=== PATIENT | female | born 1990 | race African-American/Black ===

== ENCOUNTER 2020-04-01 15:05 | Emergency (ER) | payer OTHER, SELFPAY ==
[2020-04-01 15:36] VITALS: BP 137/84; PULSE 97; RESP 16; TEMP 36.5; O2SAT 100
[2020-04-01 19:36] VITALS: BP 133/114; PULSE 120; O2SAT 100
[2020-04-01] MEDS: ACETAMINOPHEN 325 MG TABLET 650 MG (21:25)
[2020-04-01] MEDS: IBUPROFEN 600 MG TABLET (21:25)
--- NOTE | 2020-04-01 21:25 | PC.NURSE ---
LUCIO FROM DR SYKES FOR MOTRIN 600 MG PO X1 AND TYLENOL 650 MG PO X1
[2020-04-01 21:55] LABS: Monoscreen Negative (Negative); Negative Monotest Control Negative (Negative); Positive Monotest Control Positive (Positive)
--- NOTE | 2020-04-01 22:05 | ED.GENADULT ---
HPI - General Adult General Chief complaint: Upper Respiratory Infection Stated complaint: st Time Seen by Provider: 04/01/20 20:12 Source: patient Mode of arrival: ambulatory Limitations: no limitations History of Present Illness HPI narrative: 29 years old -[place] female presents with sore throat that started 2 days ago. Patient lives alone, denies exposure to anybody with the same symptoms. Patient denies exposure to anybody was COVID-19. Patient denies any fever, chills, nausea, vomiting, chest pain, shortness of breath, headaches. Related Data Allergies Allergy/AdvReac Type Severity Reaction Status Date / Time No Known Allergies Allergy Verified 04/01/20 15:38 Review of Systems Review of Systems: Narrative: CONSTITUTIONAL: Denies fever, chills, or sweats. EYES: Denies visual changes, redness, or discharge. ENT: Denies rhinorrhea, congestion, sore throat, or otalgia. CARDIOVASCULAR: Denies chest pain, palpitations, or edema. RESPIRATORY: Denies cough or dyspnea. GASTROINTESTINAL: Denies abdominal pain, nausea, vomiting, or diarrhea. GENITOURINARY: Denies dysuria or hematuria. SKIN: Denies rash or itching. MUSCULOSKELETAL: Denies back pain, joint pain, or myalgia. NEUROLOGIC: Denies headache, numbness, or weakness. PSYCHIATRIC: Denies anxiety or depression. [facility] Social History Social History (Updated 04/01/20 @ 22:07 by Adam Farah MD) Gender identity (if verbalized by the patient): Female Spiritual care concerns: No Exam Narrative: Exam Narrative: General appearance: Well-developed, well-nourished Skin: Normal color Head: Normocephalic, nontraumatic Eyes: Clear conjunctiva ENT: Large tonsils bilaterally with yellow discharge, midline uvula Neck: Supple, nontender Chest and respiratory: Airway patent, no respiratory distress, no accessory muscle use Heart: Regular rate/rhythm Abdomen: Soft, nontender, no organomegaly, quiet bowel sounds Vascular: Normal peripheral pulses, normal capillary refill. Musculoskeletal: Normal range of motion, nontender back Neurologic: Alert and oriented ?3, [employer] is normal as tested, no gross motor deficit Course Course Emergency Course: Stable. Rapid strep test and mono test are negative. The plan to discharge patient on Z-Juan Antonio for possible strep throat. COVID-19 test also ordered. Vital Signs Vital signs: Vital Signs Temperature 36.5 C 04/01/20 15:36 Pulse Rate 97 04/01/20 15:36 Respiratory Rate 16 04/01/20 15:36 Blood Pressure 137/84 04/01/20 15:36 Pulse Oximetry 100 04/01/20 15:36 Temperature 36.5 C 04/01/20 15:36 Pulse Rate 120 H 04/01/20 19:36 Respiratory Rate 16 04/01/20 15:36 Blood Pressure 133/114 H 04/01/20 19:36 Pulse Oximetry 100 04/01/20 19:36 Medical Decision Making MDM Narrative Medical decision making narrative: Patient denies any coughing, sneezing or postnasal discharge. Strep throat, mono are my concern. Vital Signs Vital Signs: Vital Signs Temperature 36.5 C 04/01/20 15:36 Pulse Rate 97 04/01/20 15:36 Respiratory Rate 16 04/01/20 15:36 Blood Pressure 137/84 04/01/20 15:36 Pulse Oximetry 100 04/01/20 15:36 Temperature 36.5 C 04/01/20 15:36 Pulse Rate 120 H 04/01/20 19:36 Respiratory Rate 16 04/01/20 15:36 Blood Pressure 133/114 H 04/01/20 19:36 Pulse Oximetry 100 04/01/20 19:36 Lab Data Labs: Lab Results 04/01/20 04/01/20 Range/Units 21:06 21:06 Monoscreen Negative (Negative) SARS-CoV-2 RNA (RT-PCR) Pending Strep Screen Presumptive Negative *(Reference Range: Negative)* Critical Care Time Critical Care Time Critical Care Time:
[2020-04-02 13:12] LABS: SARS-CoV-2 RNA PCR Negative
== END 2020-04-01 22:36 | disposition home or self-care (01) ==
PROVIDERS: Emergency Provider Emergency Medicine
DX: J03.90 Acute tonsillitis, unspecified (principal); Z20.828 Contact with and (suspected) exposure to other viral communicable diseases
CPT/HCPCS: 36415; 86308; 87081; 87635; 87880; 99283; A9270; C9803; U0003

== ENCOUNTER 2023-12-28 12:59 | Emergency (ER) | payer SELFPAY ==
[2023-12-28 13:09] VITALS: BP 143/82; PULSE 90; RESP 18; TEMP 36.3; O2SAT 100
[2023-12-28 13:24] LABS: Appearance Urine Cloudy (Clear); Bacteria Urine 3+ /hpf; Bilirubin Urine Negative (Negative); Blood Urine Negative (Negative); Color Urine Yellow (Yellow); Glucose Urine UA Negative (Negative); Ketones Urine Negative (Negative); Leukocyte Esterase Ur 3+ LEU/UL (Negative); Nitrate Urine Negative (Negative); Non Pathogenic Casts 0-2; Protein Urine Negative (Negative); RBC Urine 0-2 /hpf (0-2); Specific Grav Ur 1.018 (1.001-1.035); Squamous Epithelial Cell Urine None Seen /hpf (Few); Urobilinogen Urine 0.2 mg/dL (<2.0); WBC Urine >100 /hpf (0-3); pH Urine 7.5 (5.0-9.0)
[2023-12-28 13:26] LABS: Add Urine Microscopic? YES
--- NOTE | 2023-12-28 13:45 | ED.FEMALEGU ---
HPI - Female Genitourinary General Chief complaint: Urogenital-Female Stated complaint: UTI symptoms Time Seen by Provider: 12/28/23 13:13 History of Present Illness HPI Narrative: 33-year-old female present to the emergency department for evaluation for urinary symptoms. Patient states symptoms started yesterday. Patient does have burning with urination. Patient does suspect this is a urinary tract infection. Patient denies any prior history of kidney stones, patient denies any concern for STIs. Patient denies any vaginal bleeding or vaginal discharge Related Data Allergies Allergy/AdvReac Type Severity Reaction Status Date / Time No Known Allergies Allergy Verified 04/01/20 15:38 Review of Systems Review of Systems: All systems reviewed & are unremarkable except as noted in HPI and below PMFSH Social History Social History (Updated 04/01/20 @ 22:07 by Adam Farah MD) Gender identity (if verbalized by the patient): Female Spiritual care concerns: No Exam Narrative: APPEARANCE: Well appearing, no pain, no distress, well-nourished. HEAD: normocephalic, atraumatic. EYES: PERRLA/EOMI, conjunctivae clear. NOSE: Normal no drainage EARS:TMS clear with good light reflex. THROAT: Pharynx clear, no exudate. NECK: Supple. No adenopathy, no masses. RESPIRATORY: Airway patent, respirations nonlabored. Clear to auscultation bilaterally, no rales, rhonchi, wheezing. CARDIOVASCULAR: Regular rate and rhythm without murmurs rubs or gallops. ABDOMINAL: Suprapubic tenderness to palpation MUSCULOSKELETAL: Moves all extremities. Strength/ROM intact, No edema, No calf tenderness. NEURO: Alert. Cranial nerves II through XII intact. Grossly intact SKIN: Warm, dry. Normal Color Course Course Emergency Course: Patient was treated for urinary tract infection and discharged home Vital Signs Vital signs: Vital Signs Temperature 97.3 F L 12/28/23 13:09 Pulse Rate 90 12/28/23 13:09 Respiratory Rate 18 12/28/23 13:09 Blood Pressure 143/82 H 12/28/23 13:09 Pulse Oximetry 100 12/28/23 13:09 Oxygen Delivery Room Air 12/28/23 13:09 Temperature 98.8 F 12/28/23 14:08 Pulse Rate 86 12/28/23 14:08 Respiratory Rate 14 12/28/23 14:08 Blood Pressure 130/76 12/28/23 14:08 Pulse Oximetry 100 12/28/23 14:08 Oxygen Delivery Room Air 12/28/23 13:09 MDM - Female Genitourinary MDM Narrative Medical decision making narrative: 33-year-old female present to the emergency department for evaluation for urinary symptoms. Urine is consistent with a urinary tract infection. Patient was treated with Keflex in the emergency department. Patient was also provided Pyridium. Patient was discharged home with Keflex and Pyridium. Patient was encouraged to drink plenty fluids and to have close follow-up with her primary care physician. Differential Diagnosis Differential diagnosis: Likely urinary tract infection, bacterial vaginosis, trichomoniasis, ovarian cyst, cystitis and dysmenorrhea Lab Data Attestation: I reviewed the patient's lab results. Labs: Lab Results 12/28/23 Range/Units 13:15 Urine Color Yellow (Yellow) Urine Appearance Cloudy H (Clear) Urine pH 7.5 (5.0-9.0) Ur Specific [place] 1.018 (1.001-1.035) Urine Protein Negative (Negative) mg/dL Urine Glucose (UA) Negative (Negative) mg/dL Urine Ketones Negative (Negative) mg/dL Ur Blood (Man) Negative (Negative) Urine Nitrate Negative (Negative) Urine Bilirubin Negative (Negative) Urine Urobilinogen 0.2 (<2.0) mg/dL Leukocyte Esterase Rfl 3+ H (Negative) KIM/UL Urine RBC 0-2 (0-2) /hpf Urine WBC >100 H (0-3) /hpf Ur Squamous Epith Cells None seen (Few) /hpf Urine Bacteria 3+ H /hpf Urine Casts 0-2 UCG Bedside Result Negative Reference Range: Negative Urine Characteristics Cloudy
[2023-12-28] MEDS: CEPHALEXIN 500 MG CAPSULE PO (14:05)
[2023-12-28 14:08] VITALS: BP 130/76; PULSE 86; RESP 14; TEMP 37.1; O2SAT 100
== END 2023-12-28 14:10 | disposition home or self-care (01) ==
PROVIDERS: Emergency Provider Emergency Medicine
DX: N39.0 Urinary tract infection, site not specified (principal)
CPT/HCPCS: 81001; 81025; 87077; 87086; 87088; 87186; 99283; A9270

== ENCOUNTER 2024-05-05 09:07 | Emergency (ER) | payer SELFPAY ==
[2024-05-05 09:17] VITALS: BP 146/94; PULSE 77; RESP 14; TEMP 36.7; O2SAT 100
[2024-05-05 09:22] LABS: BEDSIDEPREGUCG Negative (Negative)
[2024-05-05 09:35] LABS: Add Urine Microscopic? YES; Appearance Urine Clear (Clear); Bacteria Urine None Seen /hpf; Bilirubin Urine Negative (Negative); Blood Urine Negative (Negative); Color Urine Yellow (Yellow); Glucose Urine UA Negative (Negative); Ketones Urine Negative (Negative); Leukocyte Esterase Ur 3+ LEU/UL (Negative); Nitrate Urine Negative (Negative); Non Pathogenic Casts 0-2; Protein Urine Negative (Negative); RBC Urine 0-2 /hpf (0-2); Specific Grav Ur 1.016 (1.001-1.035); Squamous Epithelial Cell Urine Occasional /hpf (Few); WBC Urine 51-100 /hpf (0-3); pH Urine 6.5 (5.0-9.0)
--- NOTE | 2024-05-05 10:54 | ED.FEMALEGU ---
HPI - Female Genitourinary General Chief complaint: Urogenital-Female Stated complaint: possible UTI Time Seen by Provider: 05/05/24 09:28 Source: patient Mode of arrival: ambulatory Limitations: no limitations History of Present Illness HPI Narrative: This is a 34-year-old female that presents to the emergency department for dysuria. Reports she was having some bleeding after intercourse. She was evaluated at another ER and had STD testing which was all negative. Over the last couple of days she has started to develop some dysuria, also reports foul-smelling urine. Denies fevers or vomiting. Related Data Allergies Allergy/AdvReac Type Severity Reaction Status Date / Time No Known Allergies Allergy Verified 05/05/24 09:21 Review of Systems Review of Systems: CONSTITUTIONAL: Denies fever, GASTROINTESTINAL: Denies abdominal pain, nausea, vomiting GENITOURINARY: Reports dysuria. Denies hematuria. All systems reviewed & are unremarkable except as noted in HPI and below PMFSH Past Medical History Medical History (Updated 05/05/24 @ 10:58 by Katelyn Thurman PA-C) No active medical problems Social History Social History (Updated 05/05/24 @ 10:56 by Katelyn Thurman PA-C) Smoking status: Never smoker Gender identity (if verbalized by the patient): Female Spiritual care concerns: No Exam Narrative: GENERAL: Well-appearing, well-nourished, and in no acute distress. HEAD: Normocephalic, atraumatic. EYES: EOMI. CHEST: Clear to auscultation. No respiratory distress. No wheezes rales or rhonchi HEART: Regular rate and rhythm. No murmur heard. Normal peripheral pulses. ABDOMEN: Soft, nontender, nondistended, normal active bowel sounds. No CVA tenderness EXTREMITIES: Normal range of motion. No edema. SKIN: Warm, dry, no rash. NEURO: No focal deficits. Alert and oriented x3. PSYCH: Normal mood and affect Course Course Emergency Course: patient updated on her workup and agrees with plan of care Vital Signs Vital signs: Vital Signs Temperature 98.1 F 05/05/24 09:17 Pulse Rate 77 05/05/24 09:17 Respiratory Rate 14 05/05/24 09:17 Blood Pressure 146/94 H 05/05/24 09:17 Pulse Oximetry 100 05/05/24 09:17 Oxygen Delivery Room Air 05/05/24 09:17 Temperature 98.1 F 05/05/24 09:17 Pulse Rate 77 05/05/24 09:17 Respiratory Rate 14 05/05/24 09:17 Blood Pressure 146/94 H 05/05/24 09:17 Pulse Oximetry 100 05/05/24 09:17 Oxygen Delivery Room Air 05/05/24 09:17 MDM - Female Genitourinary MDM Narrative Medical decision making narrative: patient presents the emergency department for symptoms of UTI. She is afebrile and nontoxic appearing. No CVA tenderness. Urine is consistent with infection. test is negative. Reports recent negative STD testing. Will be started on oral antibiotics. She is to follow up with primary provider. She was given warnings to return to the ER Differential Diagnosis Differential diagnosis: Likely urinary tract infection, cystitis and other ( pyelonephritis) Lab Data Attestation: I reviewed the patient's lab results. Labs: Lab Results 05/05/24 05/05/24 Range/Units 09:20 09:25 Urine Color Yellow (Yellow) Urine Appearance Clear (Clear) Urine pH 6.5 (5.0-9.0) Ur Specific [place] 1.016 (1.001-1.035) Urine Protein Negative (Negative) mg/dL Urine Glucose (UA) Negative (Negative) mg/dL Urine Ketones Negative (Negative) mg/dL Ur Blood (Man) Negative (Negative) Urine Nitrate Negative (Negative) Urine Bilirubin Negative (Negative) Urine Urobilinogen 1.0 (<2.0) mg/dL Leukocyte Esterase Rfl 3+ H (Negative) KIM/UL Urine RBC 0-2 (0-2) /hpf Urine WBC 51-100 H (0-3) /hpf Ur Squamous Epith Cells Occasional (Few) /hpf Urine Bacteria None seen /hpf Urine Casts 0-2 POC Urine HCG, Qual Negative (Negative) Critical Care Time Critical Care Time Critical Care Time: No Discharge Plan Discharge Clinical Impression: Acute UTI Patient Disposition: Home, Self-Care Condition: Stable Instructions: Antibiotic Form, Urinary Tract Infection in Women (ED) Additional Instructions: Return to the ER if you experience fever, abdominal pain with nausea and vomiting, you are unable to keep down liquids or solids, blood in the urine or any other symptoms that are concerning to you Remain well hydrated. take oral antibiotics as prescribed Follow up with primary care doctor Prescriptions: New cefdinir 300 mg capsule 300 mg PO Q12H 7 Days Qty: 14 0RF No Action azithromycin [Zithromax Z-Juan Antonio] 250 mg tablet 250 mg PO DAILY 5 Days Qty: 5 0RF azithromycin [Zithromax Z-Juan Antonio] 250 mg tablet 250 mg PO DAILY 5 Days Qty: 5 0RF cephalexin 500 mg capsule 500 mg PO Q8H 7 Days Qty: 21 0RF phenazopyridine [Pyridium] 100 mg tablet 100 mg PO TID PRN (Reason: pain) Qty: 6 0RF Follow-up/Referrals: UNKNOWN,DOCTOR [Primary Care Provider] -
[2024-05-05] MEDS: CEFDINIR 300 MG CAPSULE PO (11:10)
[2024-05-05 11:11] VITALS: BP 136/50; PULSE 81; RESP 16; TEMP 36.8; O2SAT 98
== END 2024-05-05 11:16 | disposition home or self-care (01) ==
PROVIDERS: Student in an Organized Health Care Education/Training Program; Emergency Provider Physician Assistant
DX: N39.0 Urinary tract infection, site not specified (principal)
CPT/HCPCS: 81001; 81025; 87086; 99283; A9270

== ENCOUNTER 2024-05-19 08:49 | Observation (INO) | payer SELFPAY ==
[2024-05-19] VITALS (12 sets, daily range): BP systolic 120–147; BP diastolic 71–97; PULSE 62–80; RESP 16–20; TEMP 36.3–36.6; O2SAT 99–100; BMI 33.0
--- NOTE | ~2024-05-19 | CT_ITS ---
CLINICAL INDICATION: Left upper quadrant pain and bilateral flank pain COMPARISON: None. TECHNIQUE: Multiple contiguous axial images of the abdomen and pelvis were performed following the ad ministration of with 100 mL Omnipaque-350 intravenous contrast The dose-length product (DLP) was 796.47 mGy-cm. Automated exposure control and iterative reconstruction technique were employed. FINDINGS/OBSERVATIONS: Visualized lower thorax: The bilateral lung bases are clear. The heart is of normal size, without pericardial effusion. Small hiatal hernia is present. Liver: The liver is enlarged measuring 20 cm in longitudinal dimension. The liver enhances homogeneously Gallbladder and biliary system: The gallbladder is decompressed, and otherwise unremarkable. Pancreas: The pancreas enhances homogeneously without ductal dilatation. Spleen: The spleen enhances homogeneously and is not enlarged measuring 10 cm in longitudinal dimension. Kidneys: The bilateral kidneys enhance symmetrically without hydronephrosis or renal calculi. Adrenal glands: Unremarkable. Gastrointestinal tract: Trace fecal stasis Appendix: The air-filled appendix is of normal caliber (axial series, images 126 -140). Vasculature: Unremarkable. No aneurysmal dilatation or significant stenosis. Lymph nodes: No pathologically enlarged or morphologically suspicious lymph nodes within the retroperitoneum or at the root of the mesentery. Pelvic structures: The bladder is decompressed and otherwise unremarkable. The uterus is anteverted and anteflexed. Body wall and musculoskeletal: No significant degenerative disease within the lower thoracic or lumbosacral spine. IMPRESSION: No obstructive uropathy. Hepatomegaly. Reviewed, dictated and finalized at location A. [employer]ACTIVE ART DIRECTOR
--- NOTE | ~2024-05-19 | XR_ITS ---
EXAMINATION: XR abdomen/kub 1V DATE: 05/19/2024 09:56 INDICATION: Hematuria. Recurrent urinary tract infections. TECHNIQUE: A supine view of the abdomen on 2 radiographs was obtained. COMPARISON: None. FINDINGS: There are no dilated loops of bowel. There are small calcifications in the pelvis. The kidn eys are obscured by bowel. IMPRESSION: 1. Small calcifications in the pelvis, which may be phleboliths. Distal ureteral stone is not exclude d on either side. Reviewed, dictated and finalized at location A. 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 Small calcifications in the pelvis, which may be phleboliths. Distal uretera l stone is not excluded on either side.
[2024-05-19 09:13] LABS: Basophils Percent Auto 0.4 % (0.2-1.2); Eosinophils Absolute Auto 0.2 K/mm3 (0-0.3); Eosinophils Percent Auto 2.4 % (0-4.4); Hematocrit 22.3 % (37.0-47.0); Immature Granulocyte Absolute 0.01 K/mm3 (0.00-0.031); Immature Granulocyte Percent A 0.1 % (0-0.5); Lymphocytes Absolute Auto 1.98 K/mm3 (0.9-3.2); Mean Corpuscular HGB Conc 27.8 g/dl (32-36); Mean Corpuscular Hemoglobin 17.8 pg (26-34); Mean Corpuscular Volume 64.1 fl (80-100); Mean Platelet Volume 9.4 fl (7.4-10.4); Monocytes Absolute Auto 0.5 K/mm3 (0.1-0.6); Monocytes Percent Auto 6.9 % (2.6-8.5); Neutrophils Absolute Auto 4.4 K/mm3 (1.3-6.7); Neutrophils Percent Auto 62.2 % (45.5-73.1); Platelet Count Result 728 k/mm3 (150-375); Red Blood Count 3.48 M/mm3 (4.2-5.4); Red Cell Distribution Width 20.9 % (11.5-14.5); White Blood Count 7.1 K/mm3 (4.5-10.0)
[2024-05-19 09:19] LABS: Add Urine Microscopic? YES; Appearance Urine Clear (Clear); Bacteria Urine None Seen /hpf; Bilirubin Urine Negative (Negative); Blood Urine Trace (Negative); Color Urine Yellow (Yellow); Glucose Urine UA Negative (Negative); Ketones Urine Negative (Negative); Leukocyte Esterase Ur 2+ LEU/UL (Negative); Nitrate Urine Negative (Negative); Non Pathogenic Casts 0-2; Protein Urine Negative (Negative); RBC Urine 0-2 /hpf (0-2); Specific Grav Ur 1.009 (1.001-1.035); Squamous Epithelial Cell Urine None Seen /hpf (Few); WBC Urine 51-100 /hpf (0-3); pH Urine 6.5 (5.0-9.0)
[2024-05-19 09:26] LABS: Alanine Aminotransferase 11 U/L (6-35); Albumin Level 4.3 g/dL (3.5-5.1); Alkaline Phosphatase 75 U/L (38-126); Anion Gap 8 mmol/L (4-12); Aspartate Amino Transferase 27 U/L (14-36); Bilirubin,Total 0.2 mg/dL (0.2-1.3); Blood Urea Nitrogen 14 mg/dL (7-17); Calcium 9.2 mg/dL (8.4-10.2); Carbon Dioxide 27 mmol/L (22-30); Chloride 100 mmol/L (98-107); Estimated CRCL calculation 130 ml/min; Estimated Glomerular Filt Rate > 60; Glucose 104 mg/dL (65-110); Lipase 79 U/L (23-300); Sodium 135 mmol/L (137-145)
--- NOTE | 2024-05-19 09:38 | ED_ITS ---
HPI - Abdominal Pain General Chief Complaint: Nausea/Vomiting/Diarrhea <Katelyn Thurman PA-C - Last Filed: 05/19/24 13:15> Stated Complaint: uti, dehydrated, n/v/d <Katelyn Thurman PA-C - Last Filed: 05/19/24 13:15> Time Seen by Provider: 05/19/24 09:07 <SVAAGE Griggs Last Filed: 05/19/24 13:15> Source: patient <SAVAGE Griggs Last Filed: 05/19/24 13:15> Mode of arrival: ambulatory <SAVAGE Griggs Last Filed: 05/19/24 13:15> Limitations: no limitations <Katelyn Thurman PA-C - Last Filed: 05/19/24 13:15> History of Present Illness HPI narrative: This is a 34-year-old female that presents to the emergency department for continued urinary symptoms. She was evaluated in the ER and diagnosed with a UTI. Reports she finished her antibiotics. She has had no relief. She continues to have dysuria. Now is endorsing hematuria as well as flank pain. Denies fevers. <Katelyn Thurman PA-C - Last Filed: 05/19/24 13:15> Related Data Home Medications: Home Medications Medication Instructions Recorded Confirmed No Home Medications 05/19/24 05/19/24 <Katelyn Thurman PA-C - Last Filed: 05/19/24 13:15> Allergies/Adverse Reactions: Allergies Allergy/AdvReac Type Severity Reaction Status Date / Time No Known Allergies Allergy Verified 05/19/24 09:01 <Katelyn Thurman PA-C - Last Filed: 05/19/24 13:15> Review of Systems Review of Systems: CONSTITUTIONAL: Denies fever GASTROINTESTINAL: Reports abdominal pain, nausea, vomiting, and diarrhea. GENITOURINARY: Reports dysuria and hematuria. <SAVAGE Griggs Last Filed: 05/19/24 13:15> All systems reviewed & are unremarkable except as noted in HPI and below <SAVAGE Griggs Last Filed: 05/19/24 13:15> [facility], [facility] Past Medical History Medical History: Medical History No active medical problems <Katelyn Thurman PA-C - Last Filed: 05/19/24 13:15> Social History Social History: Social History Smoking status: Never smoker Alcohol intake: unknown Substance use: never Do You Feel Safe in your Home?: Yes Lack of Transportation: No Lack of Food: Never True Current Housing: I Have Housing Concerned About Future Housing: No Difficulty Paying Gas/Electric Bills: No Difficulty Paying for Meds: No Currently Unemployed: No Education: High School Diploma/GED Difficulty w/ Childcare or Family Care: No Gender identity (if verbalized by the patient): Female Spiritual care concerns: No <Katelyn Thurman PA-C - Last Filed: 05/19/24 13:15> Exam Narrative: GENERAL: Well-appearing, well-nourished, and in no acute distress. HEAD: Normocephalic, atraumatic. EYES: EOMI. CHEST: Clear to auscultation. No respiratory distress. No wheezes rales or rhonchi HEART: Regular rate and rhythm. No murmur heard. Normal peripheral pulses. ABDOMEN: Soft, nontender, nondistended, normal active bowel sounds. No CVA tenderness EXTREMITIES: Normal range of motion. No edema. SKIN: Warm, dry, no rash. NEURO: No focal deficits. Alert and oriented x3. PSYCH: Normal mood and affect <Katelyn Thurman PA-C - Last Filed: 05/19/24 13:15> Course Course Emergency Course: patient updated on her workup and recommendation for admission <Katelyn Thurman PA-C - Last Filed: 05/19/24 13:15> [employer]/PA Physician Supervision agree with HPI <Mk Varma MD - Last Filed: 05/19/24 18:34> Consultations Consultation #1: Spoke with hospitalist about patient and workup who accepts admission <Katelyn Thurman PA-C - Last Filed: 05/19/24 13:15> Date: 05/19/24 <Katelyn Thurman PA-C - Last Filed: 05/19/24 13:15> Vital Signs Vital signs: Vital Signs Temperature 97.6 F 05/19/24 08:54 Respiratory Rate 18 05/19/24 08:54 Temperature 98 F 05/19/24 15:43 Pulse Rate 62 05/19/24 15:43 Respiratory Rate 16 05/19/24 15:43 Blood Pressure 147/94 H 05/19/24 15:43 Pulse Oximetry 100 05/19/24 15:43 Oxygen Delivery Room Air 05/19/24 16:35 <Katelyn Thurman PA-C - Last Filed: 05/19/24 13:15> Vital Signs Temperature 97.6 F 05/19/24 08:54 Respiratory Rate 18 05/19/24 08:54 Temperature 98 F 05/19/24 15:43 Pulse Rate 62 05/19/24 15:43 Respiratory Rate 16 05/19/24 15:43 Blood Pressure 147/94 H 05/19/24 15:43 Pulse Oximetry 100 05/19/24 15:43 Oxygen Delivery Room Air 05/19/24 16:35 <Mk Varma MD - Last Filed: 05/19/24 18:34> MDM - Abdominal Pain MDM Narrative Medical decision making narrative: patient presents to the emergency department for ongoing urinary symptoms. Was seen in the ER for a UTI. Finished her course of cefdinir with little relief. She is afebrile and nontoxic appearing. Her vitals are stable. Cbc without leukocytosis. Does show microcytic anemia with hemoglobin of 6.2. Patient does report known history of anemia. She is not currently taking her iron. She did just finished her menstrual cycle a couple of days prior. Does report she has heavy periods. Metabolic panel with normal appearing kidney function. UA with 2+ leuk esterase and 51-100 white blood cells. test negative. KUB shows small calcifications which are likely phleboliths. Ureteral stone not excluded. Unfortunately our CT scanner is not working currently, will obtain CT abdomen/pelvis for further evaluation once this is back up. Spoke with hospitalist about patient and workup who accepts admission <Katelyn Thurman PA-C - Last Filed: 05/19/24 13:15> Differential Diagnosis Differential diagnosis: Likely calculus of kidney and other (acute uti, anemia) <Katelyn Thurman PA-C - Last Filed: 05/19/24 13:15> Lab Data Attestation: I reviewed the patient's lab results. <Katelyn Thurman PA-C - Last Filed: 05/19/24 13:15> Result diagrams: 05/19/24 16:31 05/19/24 09:07 <Katelyn Thurman PA-C - Last Filed: 05/19/24 13:15> Labs: Lab Results 05/19/24 05/19/24 Range/Units 09:07 10:09 WBC 7.1 (4.5-10.0) K/mm3 RBC 3.48 L (4.2-5.4) M/mm3 Hgb 6.2 L* (12.0-15.0) g/dL Hct 22.3 L (37.0-47.0) % MCV 64.1 L (80-100) fl MCH 17.8 L (26-34) pg MCHC 27.8 L (32-36) g/dl RDW 20.9 H (11.5-14.5) % Plt Count 728 H (150-375) k/mm3 MPV 9.4 (7.4-10.4) fl Immature Gran % (Auto) 0.1 (0-0.5) % Neut % (Auto) 62.2 (45.5-73.1) % Lymph % (Auto) 28.0 (18.3-44.2) % [place] % (Auto) 6.9 (2.6-8.5) % Eos % (Auto) 2.4 (0-4.4) % Baso % (Auto) 0.4 (0.2-1.2) % Lymph # (Auto) 1.98 (0.9-3.2) K/mm3 [place] # (Auto) 0.5 (0.1-0.6) K/mm3 Eos # (Auto) 0.2 (0-0.3) K/mm3 Baso # (Auto) 0.0 (0.0-0.1) K/mm3 Abs Immat Gran (auto) 0.01 (0.00-0.031) K/mm3 Absolute Neuts (auto) 4.4 (1.3-6.7) K/mm3 Absolute Nucleated RBC 0.000 (0.0-0.012) K/mm3 Nucleated RBC % 0.0 (0.0-0.2) % Platelet Estimate Increased (Adequate) Hypochromasia 2+ Microcytosis 2+ (NORMAL) Target Cells 1+ Tear Drop Cells 1+ Ovalocytes 1+ Schistocytes None seen Sodium 135 L (137-145) mmol/L Potassium 4.0 (3.4-5.0) mmol/L Chloride 100 (98-107) mmol/L Carbon Dioxide 27 (22-30) mmol/L Anion Gap 8 (4-12) mmol/L BUN 14 (7-17) mg/dL Creatinine 0.60 L (0.7-1.0) mg/dL Estim Creat Clear Calc 130 ml/min Estimated GFR > 60 (59 - ) Glucose 104 (65-110) mg/dL Calcium 9.2 (8.4-10.2) mg/dL Total Bilirubin 0.2 (0.2-1.3) mg/dL AST 27 (14-36) U/L ALT 11 (6-35) U/L Alkaline Phosphatase 75 (38-126) U/L Total Protein 9.0 H (6.3-8.2) g/dL Albumin 4.3 (3.5-5.1) g/dL Lipase 79 (23-300) U/L Urine Color Yellow (Yellow) Urine Appearance Clear (Clear) Urine pH 6.5 (5.0-9.0) Ur Specific [place] 1.009 (1.001-1.035) Urine Protein Negative (Negative) mg/dL Urine Glucose (UA) Negative (Negative) mg/dL Urine Ketones Negative (Negative) mg/dL Ur Blood (Man) Trace (Negative) Urine Nitrate Negative (Negative) Urine Bilirubin Negative (Negative) Urine Urobilinogen 1.0 (<2.0) mg/dL Leukocyte Esterase Rfl 2+ H (Negative) KIM/UL Urine RBC 0-2 (0-2) /hpf Urine WBC 51-100 H (0-3) /hpf Ur Squamous Epith Cells None seen (Few) /hpf Urine Bacteria None seen /hpf Urine Casts 0-2 Blood Type O Positive Antibody Screen Negative Crossmatch See Detail <Katelyn Thurman PA-C - Last Filed: 05/19/24 13:15> Lab Results 05/19/24 05/19/24 Range/Units 09:07 10:09 WBC 7.1 (4.5-10.0) K/mm3 RBC 3.48 L (4.2-5.4) M/mm3 Hgb 6.2 L* (12.0-15.0) g/dL Hct 22.3 L (37.0-47.0) % MCV 64.1 L (80-100) fl MCH 17.8 L (26-34) pg MCHC 27.8 L (32-36) g/dl RDW 20.9 H (11.5-14.5) % Plt Count 728 H (150-375) k/mm3 MPV 9.4 (7.4-10.4) fl Immature Gran % (Auto) 0.1 (0-0.5) % Neut % (Auto) 62.2 (45.5-73.1) % Lymph % (Auto) 28.0 (18.3-44.2) % [place] % (Auto) 6.9 (2.6-8.5) % Eos % (Auto) 2.4 (0-4.4) % Baso % (Auto) 0.4 (0.2-1.2) % Lymph # (Auto) 1.98 (0.9-3.2) K/mm3 [place] # (Auto) 0.5 (0.1-0.6) K/mm3 Eos # (Auto) 0.2 (0-0.3) K/mm3 Baso # (Auto) 0.0 (0.0-0.1) K/mm3 Abs Immat Gran (auto) 0.01 (0.00-0.031) K/mm3 Absolute Neuts (auto) 4.4 (1.3-6.7) K/mm3 Absolute Nucleated RBC 0.000 (0.0-0.012) K/mm3 Nucleated RBC % 0.0 (0.0-0.2) % Platelet Estimate Increased (Adequate) Hypochromasia 2+ Microcytosis 2+ (NORMAL) Target Cells 1+ Tear Drop Cells 1+ Ovalocytes 1+ Schistocytes None seen Sodium 135 L (137-145) mmol/L Potassium 4.0 (3.4-5.0) mmol/L Chloride 100 (98-107) mmol/L Carbon Dioxide 27 (22-30) mmol/L Anion Gap 8 (4-12) mmol/L BUN 14 (7-17) mg/dL Creatinine 0.60 L (0.7-1.0) mg/dL Estim Creat Clear Calc 130 ml/min Estimated GFR > 60 (59 - ) Glucose 104 (65-110) mg/dL Calcium 9.2 (8.4-10.2) mg/dL Total Bilirubin 0.2 (0.2-1.3) mg/dL AST 27 (14-36) U/L ALT 11 (6-35) U/L Alkaline Phosphatase 75 (38-126) U/L Total Protein 9.0 H (6.3-8.2) g/dL Albumin 4.3 (3.5-5.1) g/dL Lipase 79 (23-300) U/L Urine Color Yellow (Yellow) Urine Appearance Clear (Clear) Urine pH 6.5 (5.0-9.0) Ur Specific [place] 1.009 (1.001-1.035) Urine Protein Negative (Negative) mg/dL Urine Glucose (UA) Negative (Negative) mg/dL Urine Ketones Negative (Negative) mg/dL Ur Blood (Man) Trace (Negative) Urine Nitrate Negative (Negative) Urine Bilirubin Negative (Negative) Urine Urobilinogen 1.0 (<2.0) mg/dL Leukocyte Esterase Rfl 2+ H (Negative) KIM/UL Urine RBC 0-2 (0-2) /hpf Urine WBC 51-100 H (0-3) /hpf Ur Squamous Epith Cells None seen (Few) /hpf Urine Bacteria None seen /hpf Urine Casts 0-2 Blood Type O Positive Antibody Screen Negative Crossmatch See Detail <Mk Varma MD - Last Filed: 05/19/24 18:34> Imaging Data Radiologist's impression: ITS Impressions Abdomen X-Ray 05/19/24 10:01 IMPRESSION: 1. Small calcifications in the pelvis, which may be phleboliths. Distal ureteral stone is not excluded on either side. <Katelyn Thurman PA-C - Last Filed: 05/19/24 13:15> ITS Impressions Abdomen X-Ray 05/19/24 10:01 IMPRESSION: 1. Small calcifications in the pelvis, which may be phleboliths. Distal ureteral stone is not excluded on either side. <Mk Varma MD - Last Filed: 05/19/24 18:34> Critical Care Time Critical Care Time Critical Care Time: Yes <Katelyn Thurman PA-C - Last Filed: 05/19/24 13:15> Total Critical Care Time: 35 <Katelyn Tuhrman PA-C - Last Filed: 05/19/24 13:15> Discharge Plan Discharge Clinical Impression: Acute UTI Anemia Qualifiers: Anemia type: unspecified type Qualified Code(s): D64.9 - Anemia, unspecified <Katelyn Thurman PA-C - Last Filed: 05/19/24 13:15> Patient Disposition: Still a Patient <Katelyn Thurman PA-C - Last Filed: 05/19/24 13:15> Condition: Stable <Katelyn Thurman PA-C - Last Filed: 05/19/24 13:15>
[2024-05-19 09:48] LABS: Hemoglobin 6.2 g/dL (12.0-15.0)
[2024-05-19 09:51] LABS: Hypochromasia 2+; Microcytosis 2+ (NORMAL); Ovalocytes 1+; Platelet Estimate Increased (Adequate); Schistocytes None Seen; Target Cells 1+; Tear Drop Cells 1+
[2024-05-19] MEDS: ONDANSETRON INJ 4 MG/2 ML VIAL IV PUSH (09:55)
[2024-05-19] MEDS: SODIUM CHLORIDE 0.9% IV 500 ML 999 ML IV CONT (09:55)
[2024-05-19] MEDS: SODIUM CHLORIDE 0.9% IV 250 ML 30 ML IV CONT (11:53)
[2024-05-19] MEDS: TUBING, BLOOD SET 1 EACH XX ×2 (11:57→14:09)
[2024-05-19] MEDS: CEPHALEXIN 500 MG CAPSULE PO ×2 (13:29→20:17)
--- NOTE | 2024-05-19 13:56 | P.HP_ITS ---
H&P: HPI History of Present Illness Date/Time: 05/19/24 13:56 Chief Complaint: Flank Pain, N/V/D Narrative: 34 y/o F presents here with bilateral flank pain, nausea, vomiting, diarrhea with no significant PMH. The patient presents here from home for further evaluation of bilateral flank pain, nausea, vomiting, and diarrhea. The patient was recently seen at [facility] on 05/05/2024 for further evaluation of dysuria. Accompanied by post-coital bleeding, for which she was evaluated at another ER and had STD testing completed which was negative. At this visit she was diagnosed with a UTI and sent home on cefdinir b.i.d. x7 days. Urine culture grew strep B. the patient is now returning today on 05/19 for continued urinary symptoms. She reports she is continuing to experience dysuria and that it never resolved from initial incident, but has now also developed hematuria and bilateral flank pain. She reports compliance with the recent antibiotic course which has since been completed. She denies accompanying fever, chills, body aches. No prior hx of kidney stones. Patient then developed left upper abdominal pain post-blood transfusion. Patient describes stabbing, strong, constant, and has since been partially relieved with morphine. Patient also reports that she recently came off her menstrual cycle, cycles are typically heavy but most recent one was particularly heavy and she passed clots so large she could feel them passing. Denies any lightheadedness or dizziness. Initial VS at presentation: 97.6? F, HR 66, RR 18, 133/76, and 99% on RA. ED workup showed: No leukocytosis, hemoglobin 6.2 (no previous available for comparison), no significant electrolyte derangements, platelet count 728, creatinine 0.6 and GFR >60. UA showed 2+ leuk esterase and 51-100 WBC with no epithelial cells or bacteria. Abdominal x-ray showed small calcifications in the pelvis which may be phleboliths, distal ureteral stone is not excluded on either side. Review of Systems Review of Systems: All systems reviewed & are unremarkable except as noted in HPI and below [facility] Past Medical History Medical History (Updated 05/19/24 @ 19:12 by Maggie Morales APRN) Anemia noted on 05/19/2024 Social History Social History Smoking status: Never smoker Alcohol intake: unknown Substance use: never Do You Feel Safe in your Home?: Yes Lack of Transportation: No Lack of Food: Never True Current Housing: I Have Housing Concerned About Future Housing: No Difficulty Paying Gas/Electric Bills: No Difficulty Paying for Meds: No Currently Unemployed: No Education: High School Diploma/GED Difficulty w/ Childcare or Family Care: No Gender identity (if verbalized by the patient): Female Spiritual care concerns: No Meds Home Medications and Allergies Home Medications Medication Instructions Recorded Confirmed Type No Home Medications 05/19/24 05/19/24 History Allergies Allergy/AdvReac Type Severity Reaction Status Date / Time No Known Allergies Allergy Verified 05/19/24 09:01 Vital Signs Vital Signs - 24 hr 05/19/24 08:54 05/19/24 09:40 05/19/24 11:53 Temperature 97.6 F 97.9 F 97.3 F L Pulse Rate 66 72 Respiratory Rate 18 20 18 Blood Pressure 133/76 146/97 H Pulse Oximetry 99 100 05/19/24 12:08 05/19/24 12:08 05/19/24 13:08 Temperature 97.4 F L 97.4 F L 97.4 F L Pulse Rate 63 63 64 Respiratory Rate 18 18 18 Blood Pressure 145/86 H 145/86 H 141/74 H Pulse Oximetry 99 99 100 05/19/24 13:30 Temperature 97.5 F L Pulse Rate 65 Respiratory Rate 18 Blood Pressure 140/88 Pulse Oximetry 100 Exam Const: General: comfortable and no acute distress Other: , female, nontoxic appearance HENMT: Face/Nose/Sinus: Normal nares present Mouth: Yes moist mucous membranes Eyes: General: appearance normal, both eyes and all related structures Sclera: sclerae normal Pupils: Equal, round and reactive pupils present EOM: EOMs intact bilaterally Resp: Effort & Inspection: normal respiratory effort Auscultation: clear to auscultation bilaterally Cardio: Rate: regular rate Rhythm: regular rhythm Other: S1-S2 present without murmur, rub, ectopy GI: Other: Abdomen soft, nondistended. Tender in the left upper quadrant. Normoactive bowel sounds in all quadrants. Skin: General skin exam: normal color and no rashes or lesions noted Wounds: no wounds Neuro: Speech: normal speech Motor exam (neuro): 5/5 motor strength present throughout Sensory Exam: normal sensation Other: A&O x4 Extrem: General: normal to inspection Psych: Mental Status: mental status grossly normal Affect: normal affect Other: Good insight and judgment, pleasant H&P: Results Labs Labs: Short CBC 05/19/24 Range/Units 09:07 WBC 7.1 (4.5-10.0) K/mm3 Hgb 6.2 L* (12.0-15.0) g/dL Hct 22.3 L (37.0-47.0) % Plt Count 728 H (150-375) k/mm3 BMP 05/19/24 09:07 Sodium 135 L Potassium 4.0 Chloride 100 Carbon Dioxide 27 BUN 14 Creatinine 0.60 L Glucose 104 Calcium 9.2 Liver Function 05/19/24 Range/Units 09:07 Total Bilirubin 0.2 (0.2-1.3) mg/dL AST 27 (14-36) U/L ALT 11 (6-35) U/L Alkaline Phosphatase 75 (38-126) U/L Albumin 4.3 (3.5-5.1) g/dL Urine 05/19/24 Range/Units 09:07 Urine Color Yellow (Yellow) Urine Appearance Clear (Clear) Urine pH 6.5 (5.0-9.0) Ur Specific [place] 1.009 (1.001-1.035) Urine Protein Negative (Negative) mg/dL Urine Glucose (UA) Negative (Negative) mg/dL Assessment and Plan Assessment and plan (1) Anemia: Qualifiers: Anemia type: unspecified type Qualified Code(s): D64.9 - Anemia, unspecified Code(s): D64.9 - Anemia, unspecified Status: Acute Assessment and Plan: - Hgb 6.2, MCV 64.1, MCHC 27.8 - no previously known history of anemia - add iron, TIBC, ferritin, B12, folic acid, and TSH - transfuse if <7 - trend H&H (2) Thrombocytosis: Code(s): D75.839 - Thrombocytosis, unspecified Status: Acute Assessment and Plan: - platelet count 728 - hematology consulted - anemia workup place, see above. Add ESR and CRP. - CT abdomen/pelvis ordered, now experiencing left upper quadrant pain (3) Acute UTI: Code(s): N39.0 - Urinary tract infection, site not specified Status: Acute Assessment and Plan: - UA: 2+ leuks, 51-100 WBC - UC pending - previous micro reviewed, group B strep on 05/05/2024, E coli on 12/28/2023 - started on cephalexin 500 mg b.i.d. p.o. times x10 days - IV fluids: 1L bolus, now at 30 mL/hour Plan Diet: Regular GI Prophylaxis: Not currently indicated DVT Prophylaxis: Low risk Lines: Peripheral Code Status: Full code Quality If No VTE Prophylaxis Answer both mechanical and pharmacologic: Reason no mechanical VTE proph: low risk/not indicated Reason no pharmacologic proph: low risk/not indicated Hospitalist MIPS Advance Care Plan I have confirmed that the patient's Advanced Care Plan is present, code status is documented, or surrogate decision maker is listed in patient medical record.: Yes Medication Reconciliation I have utilized all available resources to obtain, update and review the patients current medications (includes all prescriptions, OTC, herbals, cannabis, and nutritional supplements).: Yes
[2024-05-19] MEDS: SODIUM CHLORIDE 0.9% IV 250 ML 30 ML (14:08)
--- NOTE | 2024-05-19 15:11 | PC.NURSE ---
This patient, Alejandro Duran, was admitted to 2 Medical Room 257-01. Patient/family oriented to hospital policies and general routines including ID bracelet, bed and alarms, visiting hours, pain management, procedures, bathroom and other care routines, personal items, smoking policy, room service/diet, and visiting hours. Information on how to activate the Rapid Response Team has been discussed. Patient/Family are encouraged to report perceived risks to care and to ask questions if they do not understand what they are told or what they should do.
[2024-05-19 16:37] LABS: Hematocrit 27.5 % (37.0-47.0); Hemoglobin 8.5 g/dL (12.0-15.0)
[2024-05-19 16:50] LABS: Iron 108 ug/dL (37-170)
[2024-05-19 16:54] LABS: CRP 2.7 mg/dL (<1.0)
[2024-05-19 16:59] LABS: Percent Iron Saturation 28 % (20-50)
[2024-05-19] MEDS: MORPHINE SULFATE (*CRX) 2 MG/ML INJ IV PUSH (17:09)
[2024-05-19 17:27] LABS: Ferritin 5.86 ng/mL (6.24-137)
[2024-05-19 17:29] LABS: Erythrocyte Sedimentation Rate 47 mm/hr (0-20)
--- NOTE | 2024-05-19 17:44 | PDONCCN ---
HPI - Date of Consult Date/Time: 05/19/24 17:44 Requesting Physician: Brooks Pearson MD Primary Care Provider: UNKNOWN,DOCTOR - Consult Narrative Reason for consult: Anemia Narrative: Alejandro Duran is a 34 year old female came into the hospital with complain of dysuria and hematuria going on for last couple of weeks duration. She was treated with antibiotic as an outpatient without much relief. She also has been having heavy menstrual bleeding. Her labs showed hemoglobin of 6.2 with MCV of 64.1. She is quite tired and fatigued. Denies any melena hematochezia. She denies any previous history of stomach surgeries. She denies being a vegetarian. She also denies any history of sickle cell anemia in the family. Abdominal x-ray showed possibility of distal ureteral stone is not excluded. Review of Systems - Review of Systems All systems reviewed & are unremarkable except as noted in HPI and [facility] Medical History: Medical History (Last Reviewed 05/19/24 @ 15:23 by Sharla Lee RN) No active medical problems - Social History Social History: Social History (Last Reviewed 05/19/24 @ 14:07 by Maggie Morales APRN) Gender Identity: Gender identity (if verbalized by the patient): Female Alcohol Use: Alcohol intake: unknown Substance Use: Substance use: never Others: Spiritual care concerns: No Smoking Status: Smoking status: Never smoker Social Determinants of Health: Do You Feel Safe in your Home?: Yes Has the Lack of Transportation Kept You From Medical Appointments or From Getting Medications?: No Within the Past 12 Months, Were You Worried Whether Your Food Would Run Out Before You Got Money to Buy More?: Never True What is Your Housing Situation Today?: I Have Housing Are You Worried That in the Next 2 Months, You May Not Have Your Own Housing to Live In?: No Do You Have Trouble Paying Your Heating Or Electricity Bill?: No Do You Have Trouble Paying For Medicines?: No Are You Currently Unemployed and Looking for Work?: No Highest Level of Education Completed: High School Diploma/GED Do You Have Trouble With Childcare or the Care of a Family Member?: No Exam - Vital Signs Vital Signs - 24 hr 05/19/24 08:54 05/19/24 09:40 05/19/24 11:53 Temperature 36.4 C 36.6 C 36.3 C L Pulse Rate 66 72 Respiratory Rate 18 20 18 Blood Pressure 133/76 146/97 H Pulse Oximetry 99 100 Oxygen Delivery 05/19/24 12:08 05/19/24 12:08 05/19/24 13:08 Temperature 36.3 C L 36.3 C L 36.3 C L Pulse Rate 63 63 64 Respiratory Rate 18 18 18 Blood Pressure 145/86 H 145/86 H 141/74 H Pulse Oximetry 99 99 100 Oxygen Delivery 05/19/24 13:30 05/19/24 13:57 05/19/24 14:15 Temperature 36.4 C L 36.5 C 36.3 C L Pulse Rate 65 65 74 Respiratory Rate 18 18 18 Blood Pressure 140/88 120/79 136/85 Pulse Oximetry 100 100 100 Oxygen Delivery 05/19/24 15:05 05/19/24 15:43 05/19/24 16:35 Temperature 36.3 C L 36.6 C Pulse Rate 65 62 Respiratory Rate 18 16 Blood Pressure 127/72 147/94 H Pulse Oximetry 100 100 Oxygen Delivery Room Air - Exam HEENT: EOMI, PERRLA, mucous membranes moist and pink Neck: supple Lungs: clear to auscultation, normal air movement Heart: no murmurs, gallops, or rubs, regular rhythm, regular rate Abdomen: abdomen soft, non-distended, normal bowel sounds Extremities: normal pulses Integumentary: no abnormalities Neurological: normal speech Psychological: mental status NL, mood NL - Lab Results Laboratory Last Values WBC 7.1 K/mm3 (4.5-10.0) 05/19/24 09:07 RBC 3.48 M/mm3 (4.2-5.4) L 05/19/24 09:07 Hgb 8.5 g/dL (12.0-15.0) L 05/19/24 16:31 Hct 27.5 % (37.0-47.0) L 05/19/24 16:31 MCV 64.1 fl (80-100) L 05/19/24 09:07 MCH 17.8 pg (26-34) L 05/19/24 09:07 MCHC 27.8 g/dl (32-36) L 05/19/24 09:07 RDW 20.9 % (11.5-14.5) H 05/19/24 09:07 Plt Count 728 k/mm3 (150-375) H 05/19/24 09:07 MPV 9.4 fl (7.4-10.4) 05/19/24 09:07 Immature Gran % (Auto) 0.1 % (0-0.5) 05/19/24 09:07 Neut % (Auto) 62.2 % (45.5-73.1) 05/19/24 09:07 Lymph % (Auto) 28.0 % (18.3-44.2) 05/19/24 09:07 [place] % (Auto) 6.9 % (2.6-8.5) 05/19/24 09:07 Eos % (Auto) 2.4 % (0-4.4) 05/19/24 09:07 Baso % (Auto) 0.4 % (0.2-1.2) 05/19/24 09:07 Lymph # (Auto) 1.98 K/mm3 (0.9-3.2) 05/19/24 09:07 [place] # (Auto) 0.5 K/mm3 (0.1-0.6) 05/19/24 09:07 Eos # (Auto) 0.2 K/mm3 (0-0.3) 05/19/24 09:07 Baso # (Auto) 0.0 K/mm3 (0.0-0.1) 05/19/24 09:07 Abs Immat Gran (auto) 0.01 K/mm3 (0.00-0.031) 05/19/24 09:07 Absolute Neuts (auto) 4.4 K/mm3 (1.3-6.7) 05/19/24 09:07 Absolute Nucleated RBC 0.000 K/mm3 (0.0-0.012) 05/19/24 09:07 Nucleated RBC % 0.0 % (0.0-0.2) 05/19/24 09:07 Platelet Estimate Increased (Adequate) 05/19/24 09:07 Hypochromasia 2+ 05/19/24 09:07 Microcytosis 2+ (NORMAL) 05/19/24 09:07 Target Cells 1+ 05/19/24 09:07 Tear Drop Cells 1+ 05/19/24 09:07 Ovalocytes 1+ 05/19/24 09:07 Schistocytes None seen 05/19/24 09:07 ESR 47 mm/hr (0-20) H 05/19/24 16:31 Sodium 135 mmol/L (137-145) L 05/19/24 09:07 Potassium 4.0 mmol/L (3.4-5.0) 05/19/24 09:07 Chloride 100 mmol/L (98-107) 05/19/24 09:07 Carbon Dioxide 27 mmol/L (22-30) 05/19/24 09:07 Anion Gap 8 mmol/L (4-12) 05/19/24 09:07 BUN 14 mg/dL (7-17) 05/19/24 09:07 Creatinine 0.60 mg/dL (0.7-1.0) L 05/19/24 09:07 Estim Creat Clear Calc 130 ml/min 05/19/24 09:07 Estimated GFR > 60 (59-) 05/19/24 09:07 Glucose 104 mg/dL (65-110) 05/19/24 09:07 Calcium 9.2 mg/dL (8.4-10.2) 05/19/24 09:07 Iron 108 ug/dL (37-170) 05/19/24 16:31 TIBC 387 ug/dL (261-462) 05/19/24 16:31 Ferritin 5.86 ng/mL (6.24-137) L 05/19/24 16:31 Total Bilirubin 0.2 mg/dL (0.2-1.3) 05/19/24 09:07 AST 27 U/L (14-36) 05/19/24 09:07 ALT 11 U/L (6-35) 05/19/24 09:07 Alkaline Phosphatase 75 U/L (38-126) 05/19/24 09:07 C-Reactive Protein 2.7 mg/dL (<1.0) H 05/19/24 16:31 Total Protein 9.0 g/dL (6.3-8.2) H 05/19/24 09:07 Albumin 4.3 g/dL (3.5-5.1) 05/19/24 09:07 Lipase 79 U/L (23-300) 05/19/24 09:07 TSH (Reflex) 2.160 uIU/mL (0.465-4.68) 05/19/24 16:31 Urine Color Yellow (Yellow) 05/19/24 09:07 Urine Appearance Clear (Clear) 05/19/24 09:07 Urine pH 6.5 (5.0-9.0) 05/19/24 09:07 Ur Specific [place] 1.009 (1.001-1.035) 05/19/24 09:07 Urine Protein Negative mg/dL (Negative) 05/19/24 09:07 Urine Glucose (UA) Negative mg/dL (Negative) 05/19/24 09:07 Urine Ketones Negative mg/dL (Negative) 05/19/24 09:07 Ur Blood (Man) Trace (Negative) 05/19/24 09:07 Urine Nitrate Negative (Negative) 05/19/24 09:07 Urine Bilirubin Negative (Negative) 05/19/24 09:07 Urine Urobilinogen 1.0 mg/dL (<2.0) 05/19/24 09:07 Leukocyte Esterase Rfl 2+ KIM/UL (Negative) H 05/19/24 09:07 Urine RBC 0-2 /hpf (0-2) 05/19/24 09:07 Urine WBC 51-100 /hpf (0-3) H 05/19/24 09:07 Ur Squamous Epith Cells None seen /hpf (Few) 05/19/24 09:07 Urine Bacteria None seen /hpf 05/19/24 09:07 Urine Casts 0-2 05/19/24 09:07 Blood Type O Positive 05/19/24 10:09 Antibody Screen Negative 05/19/24 10:09 Crossmatch See Detail 05/19/24 10:09 Meds Home Medications Medication Instructions Recorded Confirmed Type No Home Medications 05/19/24 05/19/24 History Allergies Allergy/AdvReac Type Severity Reaction Status Date / Time No Known Allergies Allergy Verified 05/19/24 09:01 Results - Labs CBC & Chem 7: 05/19/24 16:31 05/19/24 09:07 Labs: Short CBC 05/19/24 05/19/24 Range/Units 09:07 16:31 WBC 7.1 (4.5-10.0) K/mm3 Hgb 6.2 L* 8.5 L (12.0-15.0) g/dL Hct 22.3 L 27.5 L (37.0-47.0) % Plt Count 728 H (150-375) k/mm3 BMP 05/19/24 09:07 Sodium 135 L Potassium 4.0 Chloride 100 Carbon Dioxide 27 BUN 14 Creatinine 0.60 L Glucose 104 Calcium 9.2 Liver Function 05/19/24 Range/Units 09:07 Total Bilirubin 0.2 (0.2-1.3) mg/dL AST 27 (14-36) U/L ALT 11 (6-35) U/L Alkaline Phosphatase 75 (38-126) U/L Albumin 4.3 (3.5-5.1) g/dL Urine 05/19/24 Range/Units 09:07 Urine Color Yellow (Yellow) Urine Appearance Clear (Clear) Urine pH 6.5 (5.0-9.0) Ur Specific [place] 1.009 (1.001-1.035) Urine Protein Negative (Negative) mg/dL Urine Glucose (UA) Negative (Negative) mg/dL Assessment and Plan - Additional Plan Microcytic anemia. Patient is a pleasant 34-year-old female came into the hospital with dysuria and hematuria. She was treated for UTI as an outpatient without any improvement. She has been complaining of tiredness and fatigue. She is also complaining of heavy menstrual bleeding. Denies any melena hematochezia. He has no previous history of stomach surgeries. She denies any being a vegetarian. She also denies any history of sickle cell anemia. Labs noted that showed microcytosis with elevated platelet count likely secondary to iron deficiency anemia. Iron studies showed ferritin of 5.8. Remainder of the iron studies are pending. I will also order hemoglobin electrophoresis and will start her on IV iron infusion. She need to be seen by urologist for persistent UTI. I have provided her my office information for follow-up.
[2024-05-19 18:08] LABS: Folic Acid 6.7 ng/mL (2.76->20)
[2024-05-19] MEDS: IRON SUCROSE COMPLEX 400 MG, IRON SUCROSE COMPLEX 100 MG in SODIUM CHLORIDE 0.9% IV 250 ML 78.57 MG IVPB (20:16)
[2024-05-19] MEDS: BENZOCAINE/MENTHOL (*BKC) 18 EA LOZENGE 1 LOZENGE PO (20:42)
[2024-05-19] MEDS: BENZONATATE 100 MG CAPSULE PO (20:42)
[2024-05-20] VITALS (7 sets, daily range): BP systolic 132–148; BP diastolic 68–86; PULSE 68–81; RESP 16–20; TEMP 36.2–36.8; O2SAT 97–100
[2024-05-20] MEDS: HYDROcodone/acetaminophen (*CRX) 5-325 MG TABLET 1 TAB PO ×2 (05:29→09:35)
[2024-05-20] MEDS: CEPHALEXIN 500 MG CAPSULE PO ×2 (09:35→20:36)
--- NOTE | 2024-05-20 11:17 | P.PNIM_ITS ---
Progress Note: A&P Assessment and Plan (1) Anemia: Qualifiers: Anemia type: unspecified type Qualified Code(s): D64.9 - Anemia, unspecified Code(s): D64.9 - Anemia, unspecified Status: Acute Assessment and Plan: * Initial Hgb 6.2, MCV 64.1, MCHC 27.8 * Patient received 2 units of packed red blood cells today * no previously known history of anemia or sickle cell anemia * Has history of heavy menstrual bleeding and postcoital bleeding * OB consulted for further evaluation * Ferritin 5.86, iron 108 * ESR 47 * Anemia panel pending * Iron infusion ordered per Hematology * Hematology consulted and following * Vitamin B12, folic acid, and TSH are all within normal range * transfuse if hemoglobin <7 * Continue to trend (2) Thrombocytosis: Code(s): D75.839 - Thrombocytosis, unspecified Status: Acute Assessment and Plan: * platelet count 728 * hematology consulted and thinks this is likely due to her iron deficiency anemia * Anemia workup pending * CT of the abdomen and pelvis was negative for any obstructive uropathy, showed hepatomegaly. (3) Acute UTI: Code(s): N39.0 - Urinary tract infection, site not specified Status: Acute Assessment and Plan: * UA: 2+ leuks, 51-100 WBC * UC obtained and pending * previous micro reviewed, group B strep on 05/05/2024, E coli on 12/28/2023 * started on cephalexin 500 mg b.i.d. p.o. times x10 days (4) Abnormal bleeding in menstrual cycle: Code(s): N92.6 - Irregular menstruation, unspecified Status: Acute Assessment and Plan: * Reports heavy periods for past few months with post-coital bleeding which occurred twice. * OB consulted * Anemia requiring 2 units of blood today Time Spent With Patient Time with patient: 25 - 35 minutes Subjective Date/time seen: 05/20/24 11:17 Interval history: Interval history: This is a 34-year-old female who presented to the hospital with complaints of dysuria and hematuria. She was treated for UTI as an outpatient any improvement. Workup in the hospital included an abdomen x-ray which showed small calcifications in the pelvis which may be phleboliths. Abdomen/pelvis CT showed hepatomegaly, no obstructive uropathy. Initial labs showed a normal white blood cell count of 7.1, RBC 3.48, hemoglobin 6.2, MCV 64.1, platelet count 728, ESR 47, sodium 135, creatinine 0.60, iron 108, ferritin 5.86, C reactive protein 2.7, vitamin B12 folate and TSH were all within normal limits. A UA was obtained which showed 2+ leukocyte, 51-100 urine wbc's. Urine culture was obtained and pending. Urine culture from 05/05/2024 showed group B Streptococcus isolated. She continues on Keflex 500 mg b.i.d. for 17 more doses. She also had a urine culture on 12/28/2023 which shown E coli which was essentially pansensitive. Hematology was consulted. She was given 2 units of blood. Subjective: Patient reports a sore throat, laryngitis, congestion, productive cough with thick green/yellow sputum, diaphoresis, postnasal drip that has been going on for several days however the cough started yesterday. She also reported abdominal pain last night however that has resolved. She is afebrile, vital signs are stable, she is currently on room air. She denies any fever, chills, nausea, vomiting, diarrhea, chest pain, shortness a breath. When discussing her menstrual cycles she states that she has had heavy periods for quite a few months now and also has postcoital bleeding that has happened twice. She denies ever needing a blood transfusion in the past however she has felt tired and more fatigued. Review of Systems Review of Systems: All systems reviewed & are unremarkable except as noted in HPI and below Constitutional: Constitutional: Reports as per HPI and Reports no additional constitutional complaints Eyes: Eyes: Reports as per HPI and Reports no additional eye complaints ENT: Reports system reviewed and no additional complaints, except as documented and Reports as per HPI Cardiovascular: Cardiovascular: Reports as per HPI and Reports no additional cardiovascular complaints Respiratory: Respiratory: Reports as per HPI and Reports no additional respiratory complaints Gastrointestinal: Gastrointestinal: Reports as per HPI and Reports no additional gastrointestinal complaints Genitourinary: Genitourinary: Reports no additional female genitourinary complaints and Reports as per HPI Musculoskeletal: Musculoskeletal: Reports no additional musculoskeletal complaints and Reports as per HPI Integumentary/Breasts: Skin/Breast: Reports system reviewed and no additional complaints, except as docu and Reports as per HPI Neurologic: Reports system reviewed and no additional complaints, except as documented and Reports as per HPI Psychiatric: Psychiatric: Reports no additional psychiatric complaints and Reports as per HPI Exam Narrative: General: In no acute distress, well nourished Head: atraumatic, no encephalopathy Eyes: EOMI, PERRLA, sclera clear ENT: moist mucous membranes, nasal passages congested, postnasal drip, laryngitis/hoarseness Neck: supple, no JVD, no adenopathy, trachea midline Cardiac: Normal S1 and S2. RRR, No murmur, gallops or friction rubs, peripheral pulses intact. Respiratory: Lungs clear to auscultation, no adventitious lung sounds, currently on room air Gastrointestinal: soft, non-distended, non-tender, normoactive bowel sounds. : voiding without difficulty. Extremities: moves all extremities well, no edema, good ROM, strength 5/5 Skin: clean, dry, intact. No wounds or lesions. Neuro: Alert and oriented x4, cranial nerves intact, no neuro deficits. Psych: normal mood, normal affect, interactive Objective Data Vital Signs Vital Signs: Vital Signs - 24 hr 05/19/24 11:53 05/19/24 12:08 05/19/24 12:08 Temperature 97.3 F L 97.4 F L 97.4 F L Pulse Rate 72 63 63 Respiratory Rate 18 18 18 Blood Pressure 146/97 H 145/86 H 145/86 H Pulse Oximetry 100 99 99 Oxygen Delivery 05/19/24 13:08 05/19/24 13:30 05/19/24 13:57 Temperature 97.4 F L 97.5 F L 97.7 F Pulse Rate 64 65 65 Respiratory Rate 18 18 18 Blood Pressure 141/74 H 140/88 120/79 Pulse Oximetry 100 100 100 Oxygen Delivery 05/19/24 14:15 05/19/24 15:05 05/19/24 15:43 Temperature 97.4 F L 97.4 F L 98 F Pulse Rate 74 65 62 Respiratory Rate 18 18 16 Blood Pressure 136/85 127/72 147/94 H Pulse Oximetry 100 100 100 Oxygen Delivery 05/19/24 16:35 05/19/24 19:55 05/19/24 20:00 Temperature 97.8 F Pulse Rate 80 80 Respiratory Rate 18 18 Blood Pressure 138/71 Pulse Oximetry 100 100 Oxygen Delivery Room Air Room Air 05/20/24 00:00 11/16/24 04:00 05/20/24 08:00 Temperature 97.7 F 97.8 F 97.1 F L Pulse Rate 75 68 74 Respiratory Rate 18 20 18 Blood Pressure 132/69 136/76 148/86 H Pulse Oximetry 100 97 99 Oxygen Delivery Intake/Output Intake/Output: Intake & Output 05/17/24 05/18/24 05/19/24 05/20/24 23:59 23:59 23:59 23:59 Intake Total 1950 240 Balance 1950 240 Meds/Results Medications: Active Medications Generic Name Dose Route Start Last Admin Trade Name Freq PRN Reason Stop Dose Admin Acetaminophen 650 mg 05/19/24 14:14 Acetaminophen 325 Mg Tablet PO Q6H PRN Mild Pain (1-3) or Fever Hydrocodone Bitart/Acetaminophen 1 tab 05/19/24 16:43 05/20/24 09:35 Hydrocodone/Acetaminophen (*Crx) 5-325 Mg Tablet PO 1 tab Q4H PRN Administration Pain Rated 4-6 Benzocaine 1 lozenge 05/19/24 20:19 05/19/24 20:42 Benzocaine/Menthol (*Bkc) 18 Ea Lozenge PO 1 lozenge PRN PRN Administration Sore Throat Benzonatate 100 mg 05/19/24 20:19 05/19/24 20:42 Benzonatate 100 Mg Capsule PO 100 mg TID PRN Administration Cough Cephalexin HCl 500 mg 05/19/24 21:00 05/20/24 09:35 Cephalexin 500 Mg Capsule PO 05/28/24 21:01 500 mg Q12HR MANE Administration Methylprednisolone Sodium Succinate 40 mg 05/21/24 09:00 Methylprednisolone Sod Succ 40 Mg Vial IV PUSH DAILY MANE Morphine Sulfate 2 mg 05/19/24 16:43 05/19/24 17:09 Morphine Sulfate (*Crx) 2 Mg/Ml Inj IV PUSH 2 mg Q4H PRN Administration Pain Rated 7-10 Ondansetron HCl 4 mg 05/19/24 16:43 Ondansetron Hcl Odt 4 Mg Tablet PO Q6H PRN Nausea And Vomiting Radiology Results: ITS Impressions Abdomen X-Ray 05/19/24 10:01 IMPRESSION: 1. Small calcifications in the pelvis, which may be phleboliths. Distal ureteral stone is not excluded on either side. Abdomen/Pelvis CT 05/19/24 22:45 IMPRESSION: No obstructive uropathy. Hepatomegaly. Labs Labs: Laboratory Results - last 24 hr 05/19/24 05/19/24 10:09 16:31 Hgb 8.5 L Hct 27.5 L ESR 47 H Iron 108 TIBC 387 % Saturation 28 Ferritin 5.86 L C-Reactive Protein 2.7 H Vitamin B12 586.0 Folate 6.7 TSH (Reflex) 2.160 Blood Type O Positive Antibody Screen Negative Crossmatch See Detail
[2024-05-20] MEDS: methylPREDNISolone SOD SUCC 125 MG VIAL 60 MG IV PUSH (11:53)
[2024-05-20 12:27] LABS: Strep Group A RT-PCR NOT DETECTED (Negative)
[2024-05-20 12:39] LABS: SARS-CoV-2 RNA PCR Negative (Negative)
--- NOTE | 2024-05-20 13:28 | PM.IMHP ---
H&P: HPI History of Present Illness Date/Time: 05/20/24 13:28 [facility] CONSULT NOTE Chief Complaint: Reason for consultation: heavy menses Narrative: 34 y/o here for flank pain, also with vomiting and diarrhea. Also noted to have anemia. She was given 2 units PRBC. She says she has monthly menses lasting 7 days each, but this most recent period was heavier than usual. She would pass nickel-sizsed clots. She says menses are painful as well. Finally, she has had three episodes of postcoital bleeding. She and her partner use coitus interruptus for contraception. She says recently she went the ED at [facility] for STI testing and was negative. CT abd/pelvis here shows an unremarkable uterus, does not comment on adnexa. Review of Systems Review of Systems: All systems reviewed & are unremarkable except as noted in HPI and below PMFSH Past Medical History Medical History (Updated 05/20/24 @ 13:33 by Adithya Aguayo MD) Anemia noted on 05/19/2024 Social History Social History Smoking status: Never smoker Alcohol intake: unknown Substance use: never Do You Feel Safe in your Home?: Yes Lack of Transportation: No Lack of Food: Never True Current Housing: I Have Housing Concerned About Future Housing: No Difficulty Paying Gas/Electric Bills: No Difficulty Paying for Meds: No Currently Unemployed: No Education: High School Diploma/GED Difficulty w/ Childcare or Family Care: No Gender identity (if verbalized by the patient): Female Spiritual care concerns: No Meds Home Medications and Allergies Home Medications Medication Instructions Recorded Confirmed Type No Home Medications 05/19/24 05/19/24 History Allergies Allergy/AdvReac Type Severity Reaction Status Date / Time No Known Allergies Allergy Verified 05/19/24 09:01 Vital Signs Vital Signs - 24 hr 05/19/24 13:30 05/19/24 13:57 05/19/24 14:15 Temperature 36.4 C L 36.5 C 36.3 C L Pulse Rate 65 65 74 Respiratory Rate 18 18 18 Blood Pressure 140/88 120/79 136/85 Pulse Oximetry 100 100 100 Oxygen Delivery 05/19/24 15:05 05/19/24 15:43 05/19/24 16:35 Temperature 36.3 C L 36.6 C Pulse Rate 65 62 Respiratory Rate 18 16 Blood Pressure 127/72 147/94 H Pulse Oximetry 100 100 Oxygen Delivery Room Air 05/19/24 19:55 05/19/24 20:00 05/20/24 00:00 Temperature 36.6 C 36.5 C Pulse Rate 80 80 75 Respiratory Rate 18 18 18 Blood Pressure 138/71 132/69 Pulse Oximetry 100 100 100 Oxygen Delivery Room Air 05/20/24 04:00 05/20/24 08:00 05/20/24 12:00 Temperature 36.6 C 36.2 C L 36.7 C Pulse Rate 68 74 77 Respiratory Rate 20 18 16 Blood Pressure 136/76 148/86 H 144/81 H Pulse Oximetry 97 99 100 Oxygen Delivery Exam Const: Orientation/consciousness: patient oriented x3 Other: Well-developed, well-nourished female in no acute distress. : General: Yes no CVA tenderness Other: Limited exam performed in hospital bed. External genitalia: normal female hair distribution, without lesion. Urethral meatus: no lesion, non prolapsed. Bladder: no mass, nontender Vagina: well-estrogenized, without lesion or discharge. No cystocele or rectocele. No blood. Cervix: no lesion or discharge. Uterus: small, anteverted, freely mobile, nontender Adnexa: no mass or tenderness. Anus/perineum: no lesions, nontender Extrem: Other: Extremities: nontender with no edema H&P: Results Labs Labs: Short CBC 05/19/24 Range/Units 16:31 Hgb 8.5 L (12.0-15.0) g/dL Hct 27.5 L (37.0-47.0) % Assessment and Plan Assessment and plan (1) Menometrorrhagia: Code(s): N92.1 - Excessive and frequent menstruation with irregular cycle Status: Acute Assessment and Plan: A: Menometrorrhagia with dysmenorrhea. Judging by her history, menstrual bleeding does not fully explain her profound anemia. However, it certainly could be impacting its severity. P: We reviewed treatment options, including medical as well as surgical approaches. We decided to try a combined oral contraceptive for now, and simply follow up in the office. We reviewed risks, benefits and alternatives in detail. (2) Dysmenorrhea: Code(s): N94.6 - Dysmenorrhea, unspecified Status: Acute
[2024-05-21] VITALS: BP 114/99; PULSE 84; RESP 18; TEMP 36.9; O2SAT 97
[2024-05-21 04:00] VITALS: BP 146/68; PULSE 83; RESP 18; TEMP 36.7; O2SAT 100
[2024-05-21 05:27] LABS: Basophils Percent Auto 0.2 % (0.2-1.2); Hematocrit 27.8 % (37.0-47.0); Hemoglobin 8.1 g/dL (12.0-15.0); Immature Granulocyte Absolute 0.17 K/mm3 (0.00-0.031); Immature Granulocyte Percent A 0.9 % (0-0.5); Lymphocytes Absolute Auto 2.16 K/mm3 (0.9-3.2); Lymphocytes Percent Auto 11.4 % (18.3-44.2); Mean Corpuscular HGB Conc 29.1 g/dl (32-36); Mean Corpuscular Volume 68.8 fl (80-100); Mean Platelet Volume 9.4 fl (7.4-10.4); Monocytes Absolute Auto 1.4 K/mm3 (0.1-0.6); Monocytes Percent Auto 7.2 % (2.6-8.5); Neutrophils Absolute Auto 15.3 K/mm3 (1.3-6.7); Neutrophils Percent Auto 80.3 % (45.5-73.1); Platelet Count Result 688 k/mm3 (150-375); Red Blood Count 4.04 M/mm3 (4.2-5.4); Red Cell Distribution Width 24.9 % (11.5-14.5)
[2024-05-21 05:37] LABS: Alanine Aminotransferase 11 U/L (6-35); Albumin Level 3.8 g/dL (3.5-5.1); Alkaline Phosphatase 75 U/L (38-126); Anion Gap 6 mmol/L (4-12); Aspartate Amino Transferase 21 U/L (14-36); Bilirubin,Total 0.2 mg/dL (0.2-1.3); Blood Urea Nitrogen 11 mg/dL (7-17); Calcium 9.5 mg/dL (8.4-10.2); Carbon Dioxide 28 mmol/L (22-30); Chloride 102 mmol/L (98-107); Estimated CRCL calculation 130 ml/min; Estimated Glomerular Filt Rate > 60; Glucose 151 mg/dL (65-110); Potassium 3.7 mmol/L (3.4-5.0); Sodium 136 mmol/L (137-145)
[2024-05-21 06:02] LABS: Platelet Estimate Increased (Adequate)
[2024-05-21 06:03] LABS: Anisocytosis 1+; Hypochromasia 1+; Ovalocytes 1+; Platelet Clumps Present; Schistocytes None Seen
[2024-05-21 07:18] LABS: Hematocrit 29.9 % (35.0-45.0); Hemoglobin 8.5 g/dL (11.7-15.5); MCH 20.6 pg (27.0-33.0); MCV 72.4 fL (80.0-100.0); RDW 22.4 % (11.0-15.0); Red Blood Cell Count 4.13 Million/uL (3.80-5.10)
[2024-05-21 08:00] VITALS: BP 133/85; PULSE 84; RESP 16; TEMP 36.9; O2SAT 100
[2024-05-21] MEDS: methylPREDNISolone SOD SUCC 40 MG VIAL IV PUSH (08:42)
[2024-05-21] MEDS: CEPHALEXIN 500 MG CAPSULE PO (08:42)
--- NOTE | 2024-05-21 09:27 | P.DS_ITS ---
DS: Admitting Diagnosis Discharge Date 05/21/24 Admitting Diagnosis Anemia Thrombocytosis Acute UTI Abnormal bleeding in menstrual cycle DS: Discharge Diagnosis Discharge Diagnosis (1) Anemia: Qualifiers: Anemia type: unspecified type Qualified Code(s): D64.9 - Anemia, unspecified Code(s): D64.9 - Anemia, unspecified Status: Acute (2) Thrombocytosis: Code(s): D75.839 - Thrombocytosis, unspecified Status: Acute (3) Acute UTI: Code(s): N39.0 - Urinary tract infection, site not specified Status: Acute (4) Abnormal bleeding in menstrual cycle: Code(s): N92.6 - Irregular menstruation, unspecified Status: Acute DS: Summary Hospital Course Reason for hospitalization: Anemia Thrombocytosis Acute UTI Abnormal bleeding in menstrual cycle Hospital Course: This is a 34-year-old female who presented to the hospital with complaints of dysuria and hematuria. She was treated for UTI as an outpatient any improvement. Workup in the hospital included an abdomen x-ray which showed small calcifications in the pelvis which may be phleboliths. Abdomen/pelvis CT showed hepatomegaly, no obstructive uropathy. Initial labs showed a normal white blood cell count of 7.1, RBC 3.48, hemoglobin 6.2, MCV 64.1, platelet count 728, ESR 47, sodium 135, creatinine 0.60, iron 108, ferritin 5.86, C reactive protein 2.7, vitamin B12 folate and TSH were all within normal limits. A UA was obtained which showed 2+ leukocyte, 51-100 urine wbc's. Urine culture was obtained and pending. Urine culture from 05/05/2024 showed group B Streptococcus isolated. She continues on Keflex 500 mg b.i.d. for 17 more doses. She also had a urine culture on 12/28/2023 which shown E coli which was essentially pansensitive. Hematology was consulted. She was given 2 units of blood. H and H stable now. She was seen by OB and they are recommending conservative treatment for the heavy periods and placed her on control pills to regulate her bleeding. Urine culture showing E coli and she was placed on Keflex for longer duration with follow up outpatient Urology for her frequent UTI's. She will also need to follow up with Dr. Garza in a few weeks to discuss anemia work up. Final diagnosis: Anemia, thrombocytopenia, acute UTI, abnormal bleeding in menstrual cycle Status at Discharge Cognitive/behavioral status at discharge: Alert and oriented x3 Functional status at discharge: independent ambulation Overall status at discharge: patient is progressing back to baseline Time Spent with Patient Time attestation: Total time spent providing and/or coordinating discharge services: Time spent: Greater than 30 minutes Exam Narrative: General: In no acute distress, well nourished Cardiac: Normal S1 and S2. RRR, No murmur, gallops or friction rubs, peripheral pulses intact. Respiratory: Lungs clear to auscultation, no adventitious lung sounds, currently on room air Gastrointestinal: soft, non-distended, non-tender, normoactive bowel sounds. : voiding without difficulty. Extremities: moves all extremities well, no edema, good ROM, strength 5/5 Skin: clean, dry, intact. No wounds or lesions. Neuro: Alert and oriented x4, cranial nerves intact, no neuro deficits. Psych: normal mood, normal affect, interactive DS: Data Data Completed and Pending Completed studies during hospitalization: Abdomen x-ray Abdomen/Pelvis CT Pending studies at discharge: None Labs on day of discharge: Labs from last 24 hours 05/21/24 05/20/24 05/19/24 04:18 11:50 16:27 WBC 19.0 H RBC 4.04 L Hgb 8.1 L Hct 27.8 L MCV 68.8 L D MCH 20.0 L D MCHC 29.1 L RDW 24.9 H Plt Count 688 H MPV 9.4 Immature Gran % (Auto) 0.9 H Neut % (Auto) 80.3 H Lymph % (Auto) 11.4 L Dale % (Auto) 7.2 Eos % (Auto) 0.0 Baso % (Auto) 0.2 Lymph # (Auto) 2.16 Dale # (Auto) 1.4 H Eos # (Auto) 0.0 Baso # (Auto) 0.0 Abs Immat Gran (auto) 0.17 H Absolute Neuts (auto) 15.3 H Absolute Nucleated RBC 0.000 Nucleated RBC % 0.0 Platelet Estimate Increased Clumped Platelets Present Hypochromasia 1+ Anisocytosis 1+ Ovalocytes 1+ Schistocytes None seen Hemoglobinopathy Red Blood Count 4.13 Hemoglobinopathy Hct 29.9 L Hemoglobinopathy Hgb 8.5 L Hemoglobinopathy MCV 72.4 L Hemoglobinopathy MCH 20.6 L Hemoglobinopathy RDW 22.4 H Sodium 136 L Potassium 3.7 Chloride 102 Carbon Dioxide 28 Anion Gap 6 BUN 11 Creatinine 0.60 L Estim Creat Clear Calc 130 Estimated GFR > 60 Glucose 151 H Calcium 9.5 Total Bilirubin 0.2 AST 21 ALT 11 Alkaline Phosphatase 75 Total Protein 8.0 Albumin 3.8 SARS-CoV-2 RNA (RT-PCR) Negative Group A Strep (PCR) Not detected Procedures/Treatments: None Discharge Plan Discharge Attending physician on discharge: Chantal Hidalgo Consulting providers: James Garza; Adithya Aguayo Discharging Clinician: Neha Finn Anticipated Discharge Date/Time: 05/21/24 07:14 Patient Disposition: Home, Self-Care Activity: as tolerated Diet: as tolerated Discharge Instructions: * Finish all your antibiotic as directed even if you are feeling better * Finish steroid pack and follow dosing taper * Follow up with primary care doctor in 1 week. If you do not have a primary care doctor, get established with one as soon as possible. * Follow up with OB in 2-4 weeks. * You are being worked up for your anemia. Follow up with (Hematology) Dr. Garza in 2 weeks for follow up on lab work. * Considering your frequent UTI's we will send you to Urologist for further evaluation. Give Dr. Lopez a call tomorrow and set up appointment. Patient Instructions: Antibiotic Form Patient Language: Gabonese Stand Alone Forms: General Discharge Information Follow-up/Referrals: Leonidas Lopez MD [Physician] - (Frequent UTI's) James Garza MD [Physician] - 2 Weeks Adithya Aguayo MD [Physician] - 2 Weeks UNKNOWN,DOCTOR [Primary Care Provider] - 1 Week Discharge Medications: New levonorgestrel-ethinyl estrad [Lessina] 0.1-20 mg-mcg tablet 1 tablet PO DAILY Qty: 28 1RF cephalexin 500 mg Capsule 500 mg PO Q12HR Qty: 16 0RF methylprednisolone [Medrol (Juan Antonio)] 4 mg tablets,dose pack See Rx Instructions .ROUTE .COMPLEX Qty: 21 0RF Rx Instructions: orally per package directions levonorgestrel-ethinyl estrad [Lessina] 0.1-20 mg-mcg tablet 1 tablet PO DAILY Qty: 84 0RF Other Ambulatory Orders: Urine Culture (Routine) Timeframe: 2 Weeks Location: Determined by Patient Ordered By: Neha Finn Date of admission: 05/19/24 13:08 Primary Care Provider: UNKNOWN,DOCTOR Admitting Provider: Brooks Pearson Attending physician on admission: Neha Finn Condition: Improved Quality VTE Prophylaxis VTE prophylaxis: mechanical ordered Hospitalist MIPS Heart Failure (Exclusion) Patient has history of Heart Transplant or Left Ventricular Assistive Device?: No IF YES, STOP HERE Heart Failure (Qualifier) Patient has current or prior documentation of LVEF less than or equal to 40%, or mod/servere depressed LVSF?: No IF NO, STOP HERE
[2024-05-22 10:01] LABS: BEDSIDEPREGUCG Negative (Negative)
== END 2024-05-21 10:00 | disposition home or self-care (01) ==
LOC: ANHED 13:14 → ANH2MED 14:58
PROVIDERS: Emergency Medicine; Internal Medicine Hematology & Oncology; Student in an Organized Health Care Education/Training Program; Admitting Provider Internal Medicine; Emergency Provider Physician Assistant; Visit Provider Nurse Practitioner Acute Care
DX: D64.9 Anemia, unspecified (principal); D75.839 Thrombocytosis, unspecified; D69.6 Thrombocytopenia, unspecified; N39.0 Urinary tract infection, site not specified; B96.20 Unspecified Escherichia coli [E. coli] as the cause of diseases classified elsewhere; N92.6 Irregular menstruation, unspecified; Z20.822 Contact with and (suspected) exposure to COVID-19
CPT/HCPCS: 36415; 36430; 74018; 74177; 80053; 81001; 81025; 82607; 82728; 82746; 83021; 83540; 83550; 83690; 84443; 85014; 85018; 85025; 85652; 86140; 86850; 86900; 86901; 86923; 87077; 87081; 87086; 87186; 87635; 87651; 96361; 96374; 96375; 99285; A9270; G0378; J1756; J2270; J2405; J2919; J7040; J7050; P9016; Q9967

== ENCOUNTER 2025-01-18 20:15 | Emergency (ER) | payer SELFPAY ==
--- OUTSIDE RECORDS SUMMARY | 2025-01-18 20:16 | XMS_ITS | Data Portability ---
Author Organization [place] - [facility] [employer], Main Office Address [address] [place] [address] Assessment Encounter Date Assessment Date Assessment LastModified by Organization Details LastModified Time 12/07/2023 12/07/2023 This note is dictated and transcribed by [employer]. Tow Picker variances may occur. Despite proofreading, typographical errors may occur. Occasional wrong-word or 'yoxwq-g-thef' substitutions may have occurred due to the inherent limitations of voice recording. Read the chart carefully and recognize, using context, where substitutions have occurred. genie Not available 12/07/2023 15:06:19 12/28/2023 12/28/2023 This note is dictated and transcribed by [employer]. Tow Picker variances may occur. Despite proofreading, typographical errors may occur. Occasional wrong-word or 'kjwbr-u-ccjh' substitutions may have occurred due to the inherent limitations of voice recording. Read the chart carefully and recognize, using context, where substitutions have occurred. genie Not available 12/28/2023 12:14:55 Plan of Treatment Reminders Order Date Submit Date Provider Last Modified By Organization Details Last Modified Time Details Appointments None record ed. Lab None record ed. Referral None record ed. Procedures None record ed. Surgeries None record ed. Imaging XR, toe(s) , 2 or more view 024 12/28/19 24 genie [facility] [place], [address] , [place], [address], 12:15:19 Medication Orders None record ed. Patient TargetsNo targets recorded. Patient Instructions Encounter Date Encounter Id Patient Instructions Last Modified By Organization Details Last Modified Time 12/07/2023 [id number] learning about rice (rest, ice, compression, and elevation) [email or web address] Not available 12/07/2023 15:08:31 Reason for Referral None Reported. Results Created Date Observation Date Name Description Value Unit Range Abnormal Flag Note LastModifiedBy Organization Detail LastModifiedTime 12/28/19 24 XR, toe(s ), 2 or more view No observ ation record ed. [email or web address] [facility] [place] [facility] [place] [address], [place], [address], 12/28/2023 12:15:18 Result Notes None recorded. Problems Name Problem SNOMED Code Status Onset Date Resolution Date Notes Provider Name and Address Organization Details Recorded Time Sprain of lateral ligament of ankle joint 466086238 Active 024 Leonidas Evans DPM [address], [address], [place], [address] , [employer] 4 15:06:32 Closed fracture of distal phalanx of great toe 763283095 Active 024 Leonidas Evans DPM [address], [address], [place], [address] , [employer] 4 15:07:00 Ankle pain 285146778 Active 024 Leonidas Evans DPM [address], [address], [place], [address] , [employer] 4 15:07:12 Ankle pain 123008912 Active 024 Leonidas Evans DPM [address], [address], [place], [address] , [employer] 4 15:08:03 Problem Notes None recorded. Medical Equipment None Reported. Allergies No known drug allergies Medications Name Sig Start Date Stop Date Status Note LastModified by Organization Details LastModified Time hydrocodone 5 mg-acetamino phen 325 mg tablet TAKE 1 TABLET BY MOUTH EVERY 6 HOURS NEEDED 12/06 completed Not Available Not Available Not Available phenazopyrid ine 100 mg tablet TAKE 1 TABLET BY MOUTH THREE TIMES A DAY NEEDED FOR PAIN FOR 6 DOSES active Not Available Not Available No t Available cephalexin 500 mg capsule TAKE 1 CAPSULE BY MOUTH EVERY 8 HOURS FOR 7 DAYS active Not Available Not Available No t Available naproxen 500 mg tablet TAKE 1 TABLET BY MOUTH EVERY 12 HOURS 12/06 completed Not Available Not Available Not Available Vitals Date Recorded Heart rate Systolic And Diastolic Provider Name and Address Organization Details Last Updated DateTime 12/07/2023 87 /min 123/96 mm[Hg] Kirsty Del Cid CA - AH S [employer] 12/07/2023 11:57:29 Social History None recorded. Functional Status Question Answer Note LastModified by Organizat ion Details LastModified Time What is your level of alcohol consumption? Occasional [email or web address] Information not available 12/07/2023 Mental Status None recorded. Family History Nothing Reported. Medical History Condition Response BACK INJECTIONS N ALLERGIES/HAYFEVER N LUNG DISEASE/DISORDER N ESRD N HISTORY OF DRUG ABUSE N INSOMNIA N RADIATION / CHEMOTHERAPY N COPD N HIGH CHOLESTEROL / HYPERLIPIDEMIA N RHEUMATOID ARTHRITIS N PVD N EDEMA N CAROTID BLOCKAGE N SHINGLES N BACK / NECK PROBLEMS N BOWEL PROBLEMS N DEPRESSION (INCLUDING POST ) N HAVE YOU BEEN HOSPITALIZED OR SEEN IN [facility] IN THE PAST YEAR ? N FAILED BACK SYNDROME N STROKE/TIA N LYMPHEDEMA N THYROID DISEASE N TB SKIN TEST N POLYCYSTIC OVARIES N OBESITY N HISTORY WITH COMPLICATIONS WITH ANESTHES IA ? N ANEURYSM N FIBROMYALGIA N OSTEOPOROSIS N URINARY/BLADDER/KIDNEY PROBLEMS N CORONARY ARTERY DISEASE (CAD) N Do you have Advance directive? N ARTHRITIS N Do you have a healthcare POA? N RESPIRATORY PROBLEMS N USE OF BLOOD THINNERS N NO SIGNIFICANT PAST MEDICAL HISTORY N DIABETES, TYPE N VON WILLIBRAND'S DISEASE N PERIPHERAL VASCULAR DISEASE N HEARTBURN / REFLUX N PERIPHERAL ARTERY DISEASE N AFIB N Do you have a living will? N BLOOD CLOTS N POST LAMINECTOMY SYNDROME N HEPATITIS / LIVER DISEASE N PULMONARY DISEASE N USE OF NSAIDS N GOUT N ALZHEIMER'S DISEASE N PAIN N ARTERIAL INSUFFICIENCY N HEADACHES/MIGRAINES N SEIZURES/EPILEPSY N CHF N VASCULAR DISEASE N Blood Disorder N DIZZINESS N HEART DISEASE/HEART PROBLEMS N NEUROPATHY N AIDS/HIV N KIDNEY DISEASE N LIVER DISEASE N MENTAL DISORDER/ILLNESS N NEUROPSYCHOLOGICAL N HYPERTENSION N CARDIAC ARRHYTHMIA N CANCER: SPECIFY N TOURETTE'S N ANXIETY DISORDER N ANESTHESIA COMPLICATIONS N ANEMIA/BLOOD DISORDER N BIPOLAR DISORDER N AUTOIMMUNE DISEASE N OSTEOARTHRITIS N TUBERCULOSIS N FOOT PROBLEM N Gynecological HistoryNo gynecological history recorded. Obstetrics History GPAL:G 0 P 0 0 0 0 Past Encounters Encounter ID Performer Location Encounter Start Date Encounter Closed Date Diagnosis/Indication Diagnosis SNOMED-CT Code Diagnosis ICD10 Code Diagnosis Note [id number] Leonidas Evans DPM [facility] [place] [address] [place] [phone] 12/07/2023 11:50:13 12/30/2023 15:14:28 Sprain of lateral ligament of ankle joint 491049162 S93.491A right ankle x-rays negative for fracturere commend lace-up ankle brace over-the-c ounterrice therapyele vation when at rest control swellingno strenuous activities patient has an upcoming wedding this I told her to not wear any non-suppor tive shoes and to continue the bracing and postop shoe and not to be dancing Closed fra cture of distal phalanx of great toe 551572755 S92.425A x-rays reviewed with the patient- left great toe nondisplac ed, intra-vera cularconti nue postop shoeelevat ion to control swelling when at rest Ankle pain 833623608 M25 .579 left and rightrice therapyno strenuous activities [id number] Leonidas Evans DPM [facility] [place] [address] [address] 12/28/2023 11:22:44 12/29/2023 13:25:25 Sprain of lateral ligament of ankle joint 377784051 S93.491A right ankle x-rays negative for fracturere commend lace-up ankle brace over-the-c ounter- not wearingRx ankle brace todayrice therapyele vation when at rest control swellingno strenuous activities follow-up month Closed fra cture of distal phalanx of great toe 995787305 S92.425A x-rays reviewed with the patient- left great toe nondisplac ed, intra-vera cular- minor healingcon tinue postop shoeelevat ion to control swelling when at rest Health Concerns Section Related Observation LastModified by Organization Detai ls LastModified Time None Recorded Concern Status LastModified by Organization Details LastModified Time None Recorded Advance Directives Directive None Recorded Payers Insurance Date Sequence Insurance Name Policy Number Policy Grissom Covered Member ID Grissom Member ID Guarantor Name 12/07/2023 1 *SELF PAY* Jeremie Duran Notes Date Note Type Note Provider Name and Address Organization Details Recorded Time 12/07/2023 text/html . Patient is a 33-year-old female who presents the office with complaints of bilateral injury to her lower extremity. Patient states she has right ankle pain to the ankle gutter and left great toe pain. Patient states she was walking in her yd a few days ago when she fell in a hole. Patient states she was taken to the emergency room and had x-rays which were negative for any ankle fracture but was consistent with a intra-articular nondisplaced fracture of the distal phalanx of the great toe she was discharged with a walking shoe. Patient states overall she has been doing well she does complain of some achiness to her lower extremity muscles of the right leg as well as moderate tenderness over the lateral ankle gutter. Patient denies any calf pain. Patient denies any other complaints.Injury date 4comforta omari walk 0-2 blocks, pain 7 out 10, shooting, burning, throbbing and aching in nature Leonidas Evans DPM [address], [place], [address], [employer] 12/27/2023 10:34:34 12/28/2023 text/html . Patient is a 33-year-old female who returns the office for follow-up on right ankle sprain and fracture of the left great toe. Patient patient overall states that she is walking much better she denies any giving out of the ankle. Patient has been walking in normal shoe gear I did recommend a lace-up ankle brace. Patient states that her left great toe is not causing any significant pain. Patient states she denies any swelling she had x-rays today which shows minor healing with no changes in alignment. Patient denies any other complaints. Leonidas Evans DPM [address], [place], [address], [employer] 12/28/2023 12:15:38 OBGyn Episode No OBEpisode recorded.
[2025-01-18 20:26] VITALS: BP 123/75; PULSE 80; RESP 14; TEMP 36.5; O2SAT 100
[2025-01-18 20:43] LABS: BEDSIDEPREGUCG Negative (Negative)
[2025-01-18 20:52] LABS: Add Urine Microscopic? YES; Appearance Urine Turbid (Clear); Glucose Urine UA Negative (Negative); Leukocyte Esterase Ur 3+ LEU/UL (Negative); Nitrate Urine Positive (Negative); Specific Grav Ur 1.021 (1.001-1.035)
--- NOTE | 2025-01-18 22:16 | PC.NURSE ---
Pt is ambulatory to intake desk with steady gait. Pt states she is going to go home. Pt states she has her portal pamphlet but does not feel like waiting for results here. Pt exited ED with no difficulties. pt left without being seen by provider.
== END 2025-01-18 22:16 | disposition left against medical advice (07) ==
PROVIDERS: Emergency Provider Emergency Medicine
DX: R30.0 Dysuria (principal)
CPT/HCPCS: 81001; 81025; 99199

== ENCOUNTER 2025-01-26 05:05 | Emergency (ER) | payer SELFPAY ==
--- OUTSIDE RECORDS SUMMARY | 2025-01-26 05:08 | XMS_ITS | Data Portability ---
Author Organization [place] - [facility], Main Office Address [address] [place] [address] Assessment Encounter Date Assessment Date Assessment LastModified by Organization Details LastModified Time 12/07/2023 12/07/2023 This note is dictated and transcribed by [employer]. Military Nurse variances may occur. Despite proofreading, typographical errors may occur. Occasional wrong-word or 'sdaow-j-jdjk' substitutions may have occurred due to the inherent limitations of voice recording. Read the chart carefully and recognize, using context, where substitutions have occurred. genie Not available 12/07/2023 15:06:19 12/28/2023 12/28/2023 This note is dictated and transcribed by [employer]. Military Nurse variances may occur. Despite proofreading, typographical errors may occur. Occasional wrong-word or 'hlnle-h-gckk' substitutions may have occurred due to the [...] or more view 024 12/28/19 24 genie [facility] [place], [address] , [place], [address], 12:15:19 Medication Orders None record ed. Patient TargetsNo targets recorded. Patient Instructions Encounter Date Encounter Id Patient Instructions Last Modified By Organization Details Last Modified Time 12/07/2023 [id number] learning about rice (rest, ice, compression, and elevation) [email or web address] Not available 12/07/2023 15:08:31 Reason for Referral None Reported. Results Created Date Observation Date Name Description Value Unit Range Abnormal Flag Note LastModifiedBy Organization Detail LastModifiedTime 12/28/19 24 XR, toe(s ), 2 or more view No observ ation record ed. [email or web address] [facility] [place] [address], [place], [address], 12/28/2023 12:15:18 Result Notes None recorded. Problems Name Problem SNOMED Code Status Onset Date Resolution Date Notes Provider Name and Address Organization Details Recorded Time Sprain of lateral ligament of ankle joint 674325934 Active 024 Leonidas Evans DPM [address], [address], [place], [address] , [employer] 4 15:06:32 Closed fracture of distal phalanx of great toe 214374751 Active 024 Leonidas Evans DPM [address], [place], [address] , [employer] 4 15:07:00 Ankle pain 559552740 Active 024 Leonidas Evans DPM [address], [place], [address] , [employer] 4 15:07:12 Ankle pain 510146650 Active 024 Leonidas Evans DPM [address], [place], [address] , [employer] 4 15:08:03 Problem Notes None recorded. Medical [...] Kirsty Del Cid CA - AH S [facility] 12/07/2023 11:57:29 Social History None recorded. Functional Status Question Answer Note LastModified by Organizat ion Details LastModified Time What is your level of alcohol consumption? Occasional [email or web address] Information not available 12/07/2023 Mental Status None recorded. Family History Nothing Reported. Medical History Condition Response BACK INJECTIONS N ALLERGIES/HAYFEVER N LUNG DISEASE/DISORDER N INSOMNIA N ESRD N HISTORY OF DRUG ABUSE N RADIATION / CHEMOTHERAPY N COPD N RHEUMATOID ARTHRITIS N HIGH CHOLESTEROL / HYPERLIPIDEMIA N PVD N EDEMA N CAROTID BLOCKAGE N SHINGLES N DEPRESSION (INCLUDING POST ) N BOWEL PROBLEMS N BACK / NECK PROBLEMS N HAVE YOU BEEN HOSPITALIZED OR SEEN IN [facility] IN THE PAST YEAR ? N FAILED BACK SYNDROME N STROKE/TIA N THYROID DISEASE N LYMPHEDEMA N TB SKIN TEST N POLYCYSTIC OVARIES N OBESITY N ANEURYSM N HISTORY WITH COMPLICATIONS WITH ANESTHES IA ? N FIBROMYALGIA N OSTEOPOROSIS N URINARY/BLADDER/KIDNEY PROBLEMS N CORONARY ARTERY DISEASE (CAD) N Do you have Advance directive? N ARTHRITIS N Do you have a healthcare POA? N RESPIRATORY PROBLEMS N USE OF BLOOD THINNERS N NO SIGNIFICANT PAST MEDICAL HISTORY N DIABETES, TYPE N VON WILLIBRAND'S DISEASE N PERIPHERAL VASCULAR DISEASE N PERIPHERAL ARTERY DISEASE N HEARTBURN / REFLUX N AFIB N Do you have a living will? N BLOOD CLOTS N POST LAMINECTOMY SYNDROME N HEPATITIS / LIVER DISEASE N PULMONARY DISEASE N USE OF NSAIDS N GOUT N ALZHEIMER'S DISEASE N PAIN N ARTERIAL INSUFFICIENCY N SEIZURES/EPILEPSY N HEADACHES/MIGRAINES N CHF N VASCULAR DISEASE N Blood Disorder N DIZZINESS N NEUROPATHY N KIDNEY DISEASE N HEART DISEASE/HEART PROBLEMS N AIDS/HIV N MENTAL DISORDER/ILLNESS N LIVER DISEASE N NEUROPSYCHOLOGICAL N HYPERTENSION N CARDIAC ARRHYTHMIA N CANCER: SPECIFY N TOURETTE'S N ANXIETY DISORDER N ANEMIA/BLOOD DISORDER N ANESTHESIA COMPLICATIONS N BIPOLAR DISORDER N AUTOIMMUNE DISEASE N OSTEOARTHRITIS N TUBERCULOSIS N FOOT PROBLEM N Gynecological HistoryNo gynecological history recorded. Obstetrics History GPAL:G 0 P 0 0 0 0 Past Encounters Encounter ID Performer Location Encounter Start Date Encounter Closed Date Diagnosis/Indication Diagnosis SNOMED-CT Code Diagnosis ICD10 Code Diagnosis Note [id number] Leonidas Evans DPM [facility] [place] [address] [place] [phone] 12/07/2023 11:50:13 12/30/2023 15:14:28 Sprain of lateral ligament of ankle joint 753796791 S93.491A right ankle x-rays negative for fracturere commend lace-up ankle brace over-the-c ounterrice therapyele vation when at rest control swellingno strenuous activities patient has an upcoming wedding this I told her to not wear any non-suppor tive shoes and to continue the bracing and postop shoe and not to be dancing Closed fra cture of distal phalanx of great toe 922979504 S92.425A x-rays reviewed with the patient- left great toe nondisplac ed, intra-vera cularconti nue postop shoeelevat ion to control swelling when at rest Ankle pain 853323202 M25 .579 left and rightrice therapyno strenuous activities [id number] Leonidas Evans DPM [facility] [place] [address] [address] 12/28/2023 11:22:44 12/29/2023 13:25:25 Sprain of lateral ligament of ankle joint 850355769 S93.491A right ankle x-rays negative for fracturere commend lace-up ankle brace over-the-c ounter- not wearingRx ankle brace todayrice therapyele vation when at rest control swellingno strenuous activities follow-up month Closed fra cture of distal phalanx of great toe 846637001 S92.425A x-rays reviewed with the patient- left [...] Evans DPM [address], [place], [address], [employer] 12/27/2023 10:34:34 12/28/2023 text/html . Patient is [...] Evans DPM [address], [place], [address], [employer] 12/28/2023 12:15:38 OBGyn Episode No OBEpisode recorded.
[2025-01-26 05:30] VITALS: BP 138/80; PULSE 73; RESP 16; TEMP 37; O2SAT 100
[2025-01-26 05:35] LABS: BEDSIDEPREGUCG Negative (Negative)
--- NOTE | 2025-01-26 05:36 | ED.FEMALEGU ---
HPI - Female Genitourinary General Chief complaint: Back Pain/Injury Stated complaint: burning with urination/back pain Time Seen by Provider: 01/26/25 05:16 Source: patient Mode of arrival: ambulatory Limitations: no limitations History of Present Illness HPI Narrative: 34-year-old female presents with report of dysuria as well as right back/flank pain. She has been having itching burning and feels her urine has been smelling foul. Her last menstrual period recently occurred as she has finished it. She has been having some vaginal discharge. She is sexually active with male partners, 1 in the past month. She has a history of urinary tract infection although denies it being complicated or requiring admission. No history of STIs. She is amenable to STI testing. History of heavy vaginal bleeding requiring blood transfusion but this has been improved after being on steroids and control and has not been as much of a problem now. Related Data Allergies Allergy/AdvReac Type Severity Reaction Status Date / Time No Known Allergies Allergy Verified 01/26/25 05:06 [facility] Past Medical History Medical History History of blood transfusion Anemia noted on 05/19/2024 Social History Social History Smoking status: Never smoker Alcohol intake: unknown Substance use: never Do You Feel Safe in your Home?: Yes Lack of Transportation: No Lack of Food: Never True Current Housing: I Have Housing Concerned About Future Housing: No Difficulty Paying Gas/Electric Bills: No Difficulty Paying for Meds: No Currently Unemployed: No Education: High School Diploma/GED Difficulty w/ Childcare or Family Care: No Gender identity (if verbalized by the patient): Female Sexual Orientation (if Verbalized by the Patient): Straight or Heterosexual Spiritual care concerns: No Exam Narrative: GENERAL: Well-appearing, well-nourished, and in no acute distress. HEAD: Normocephalic, atraumatic. EYES: Non injected, non icteric ENT: Nares clear, no rhinorrhea or epistaxis. Gross auditory acuity intact. NECK: Supple. No meningismus. CHEST: Speaking in full sentences. No respiratory distress. HEART: Regular rate and rhythm. . ABDOMEN: Soft, nondistended. No rigidity or guarding. Not peritoneal Back: R CVA tenderness, not present on L : Normal external female genitalia without erythema, lesions, vesicles. No discharge externally or when the labia are slightly opened EXTREMITIES: Normal range of motion. No lower extremity edema. SKIN: Warm, dry, no rash. NEURO: No focal deficits. Alert and oriented. Answering questions. Following commands. Normal speech without aphasia or dysarthria. PSYCH: Normal mood and affect. Course Vital Signs Vital signs: Vital Signs Temperature 98.6 F 01/26/25 05:30 Pulse Rate 73 01/26/25 05:30 Respiratory Rate 16 01/26/25 05:30 Blood Pressure 138/80 01/26/25 05:30 Pulse Oximetry 100 01/26/25 05:30 Oxygen Delivery Room Air 01/26/25 05:30 Temperature 98.6 F 01/26/25 05:30 Pulse Rate 73 01/26/25 05:30 Respiratory Rate 16 01/26/25 05:30 Blood Pressure 138/80 01/26/25 05:30 Pulse Oximetry 100 01/26/25 05:30 Oxygen Delivery Room Air 01/26/25 05:30 MDM - Female Genitourinary MDM Narrative Medical decision making narrative: Patient presents with report dysuria as well as right back/pain. She has been having itching and burning and feels like her urine is foul smelling. In the emergency department they are afebrile with vital signs within normal limits. Patient's urine appears infected and I suspect she has a pyelonephritis based on her symptoms. Previous urine culture from 01/18/2025 is reviewed. Patient states that this urine was collected when she was in the waiting room to be seen last week but she left before being seen given how crowded the waiting room was. Urine culture from that time grew E coli that was resistant or indeterminate to various antibiotics; these include resistance to ceftriaxone. Although this urine culture was sensitive to nitrofurantoin, this will be ineffective against pyelonephritis. For this reason, will choose amoxicillin/clavulanic acid; 1st dose given in the emergency department. test negative. Patient clarifies that the white discharge he was having was last week and has since resolved. She was amenable to STI testing and this tested positive for trichomoniasis. She received 1st dose of Flagyl in the emergency department the rest the prescription provided. Advised her to not use alcohol while taking this medication and advise that her sexual partner could also be treated. She is otherwise stable for discharge. She also received a dose of and the rest of the course of a prescription of pyridium. Differential Diagnosis Differential diagnosis: Likely urinary tract infection (Pyelonephritis), bacterial vaginosis, trichomoniasis, cervicitis, vaginitis, ruptured ovarian cyst and dysmenorrhea Lab Data Attestation: I reviewed the patient's lab results. Lab results narrative: Gonorrhea chlamydia negative Labs: Lab Results 01/26/25 01/26/25 Range/Units 05:33 05:34 Urine Color Yellow (Yellow) Urine Appearance Clear (Clear) Urine pH 6.0 (5.0-9.0) Ur Specific [place] 1.023 (1.001-1.035) Urine Protein Negative (Negative) mg/dL Urine Glucose (UA) Negative (Negative) mg/dL Urine Ketones Negative (Negative) mg/dL Ur Blood (Man) Negative (Negative) Urine Nitrate Positive H (Negative) Urine Bilirubin Negative (Negative) Urine Urobilinogen 1.0 (<2.0) mg/dL Leukocyte Esterase Rfl 3+ H (Negative) KIM/UL Urine RBC 0-2 (0-2) /hpf Urine WBC >100 H (0-3) /hpf Ur Squamous Epith Cells Occasional (Few) /hpf Urine Bacteria 4+ H /hpf Urine Casts 0-2 POC Urine HCG, Qual Negative (Negative) C. trachomatis (PCR) Not detected (NOT DETECTE) N. gonorrhoeae (PCR) Not detected (NOT DETECTE) T. vaginalis (PCR) Detected A (NOT DETECTE) Discharge Plan Discharge Clinical Impression: Pyelonephritis, Escherichia coli urinary tract infection, Dysuria, Trichomonal vaginitis Patient Disposition: Home Condition: Stable Instructions: Antibiotic Form, Trichomoniasis (ED), Urinary Tract Infection in Women (DC), Kidney Infection (ED), Dysuria (ED), Flank Pain (ED) Additional Instructions: You have evidence of urinary tract infection I suspect ascended to your kidney and became an infection known as pyelonephritis. You received 1st dose of antibiotic emergency department with rest the course prescribed. Take this entire course. Pyridium/phenazopyridine can help with the pain you are experiencing from a urinary tract infection. It can discolor your urine and tears (turn them orange). Do not wear contact lenses while taking this medication. Tested positive for Trichomonas. You received 1st dose of antibiotic in the emergency department for this and the rest of the course has been prescribed. Do not drink alcohol while taking this medication. Follow-up with primary care physician. If you do not have 1 the name of the doctors listed below. Return to the emergency department any new or worsening symptoms Your sexual partner can be treated for trichomonas as well. Have them see their primary care physician, go to urgent care, etc. Patient Language: [place] Prescriptions: New amoxicillin-pot clavulanate 875-125 mg tablet 1 tablet PO Q12H 11 Days Qty: 22 0RF Rx Instructions: start 01/26/25 PM, received first dose in ED metronidazole 500 mg tablet 500 mg PO BID 7 Days Qty: 13 0RF Rx Instructions: start 01/26/25 PM, received first dose in ED phenazopyridine [Pyridium] 100 mg tablet 100 mg PO TID PRN (Reason: pain) Qty: 5 0RF Rx Instructions: rec'd first dose in ED No Action levonorgestrel-ethinyl estrad [Lessina] 0.1-20 mg-mcg tablet 1 tablet PO DAILY Qty: 28 1RF cephalexin 500 mg Capsule 500 mg PO Q12HR Qty: 16 0RF methylprednisolone [Medrol ([place]uan Antonio)] 4 mg tablets,dose pack See Rx Instructions .ROUTE .COMPLEX Qty: 21 0RF Rx Instructions: orally per package directions levonorgestrel-ethinyl estrad [Lessina] 0.1-20 mg-mcg tablet 1 tablet PO DAILY Qty: 84 0RF Follow-up/Referrals: PHYSICIAN,[employer] [Primary Care Provider] - Miguel Gonzalez MD [Physician] - Stand Alone Forms: Work/School Release IP Time of Disposition: 07:29
[2025-01-26 05:46] LABS: Add Urine Microscopic? YES; Appearance Urine Clear (Clear); Glucose Urine UA Negative (Negative); Leukocyte Esterase Ur 3+ LEU/UL (Negative); Nitrate Urine Positive (Negative); Non Pathogenic Casts 0-2; Specific Grav Ur 1.023 (1.001-1.035)
[2025-01-26] MEDS: PHENAZOPYRIDINE HCL 100 MG TABLET 200 MG PO (06:09)
[2025-01-26 06:52] LABS: Trichomonas Vag PCR DETECTED (NOT DETECTE)
== END 2025-01-26 07:38 | disposition home or self-care (01) ==
PROVIDERS: Emergency Provider Student in an Organized Health Care Education/Training Program
DX: N12 Tubulo-interstitial nephritis, not specified as acute or chronic (principal); B96.20 Unspecified Escherichia coli [E. coli] as the cause of diseases classified elsewhere; A59.01 Trichomonal vulvovaginitis; Z86.2 Personal history of diseases of the blood and blood-forming organs and certain disorders involving the immune mechanism
CPT/HCPCS: 81001; 81025; 87086; 87491; 87591; 87661; 99284; A9270